=== PATIENT | female | born 1955 | race Caucasian/White ===

== ENCOUNTER → 2018-01-08 08:42 | Outpatient (POV) | payer OTHER, SELFPAY | PROVIDERS: Family Provider Emergency Medicine; PCP Emergency Medicine; Visit Provider Nurse Practitioner Acute Care | DX: Z00.00 Encounter for general adult medical examination without abnormal findings (principal) ==

== ENCOUNTER 2018-02-12 11:14 | Day surgery (SDC) | payer OTHER, SELFPAY ==
[2018-02-07 12:35] VITALS: BMI 30.9
[2018-02-12] VITALS (7 sets, daily range): BP systolic 120–158; BP diastolic 75–87; PULSE 71–77; RESP 18–20; TEMP 36.6–37; O2SAT 96–99
--- NOTE | 2018-02-12 13:46 | HMH.PROC ---
[facility] Procedure Note Procedure Note:: Upper Endoscopy Procedure Report: Esophagogastroduodenoscopy with cold biopsies and TTS balloon dilation Endoscopost: Reagan Zaldivar II, MD Referring Physician: Wai Hi MD Date of Procedure: February 12, 2018 Equipment: Olympus GIF 180 standard upper endoscope Sedation: MAC sedation Indications: Mrs. Buchanan is a 62-year-old female who is here for diagnostic evaluation of her reflux and dyspepsia. She has had some epigastric abdominal discomfort. Her symptoms of GERD had been diagnosed more than 20 years ago. She was placed on pantoprazole which is controlling her heartburn and reflux symptoms. The patient reports occasional dysphagia to her pills. She did have cervical disc surgery in 1994 and feels that this may have contributed. She does have a early satiety. She was having loose bowel movements which may have improved some with the addition of fiber tablets and probiotic. She did have a colonoscopy last year with Dr. Kaleb Blair M.D. and had no polyps. Her mother did have colon cancer and her siblings have had colon polyps. Procedure: Prior to the procedure, a history and physical exam was performed, and patient's medications and allergies were reviewed. The risks, benefits and alternatives of the sedation and procedure were discussed with the patient. All questions were answered and informed consent was obtained. The patient was brought to the procedure room. Patient identification and proposed procedure were verified by the physician and the nurse. The patient was placed in a left lateral decubitus position and the scope was passed under direct vision. Throughout the procedure, the patient's blood pressure, pulse, and oxygen saturations were monitored continuously. The upper GI endoscopy was accomplished without difficulty. The patient tolerated the procedure well. Findings: The scope was passed directly into the upper esophagus and advanced to the third portion of the duodenum. The post bulbar duodenum and duodenal bulb were normal with normal mucosa and conniventes. The scope was withdrawn through a normal duodenal bulb and pylorus into the stomach. There was mild linear reactive gastritis/antritis. The remainder of the antrum, body and fundus of the stomach were grossly normal. Upon retroflexion there was a small 1-2 cm hiatal hernia. 2 biopsies were taken in the antrum and along the lesser curvature for histology to rule out gastritis and/or H pylori. The scope was then withdrawn into the esophagus. There was a serrated Z line. There were tertiary contractions and evidence of mild esophageal dysmotility. The entire esophagus was dilated to 60 Italian/20 mm with a TTS hydrostatic balloon. There was some resistance at the cricopharyngeus/upper esophageal sphincter. The remainder of the esophageal mucosa was normal. Impression: 1. Cricopharyngeal spasm status post dilation to 20 mm 2. Nonerosive GERD with mild esophageal dysmotility and very small sliding hernia 3. Mild linear reactive gastritis/antritis Plan: I do feel that the patient has functional dyspepsia and functional GERD. We will discuss additional treatment options. I will follow up the biopsies.
--- NOTE | 2018-02-12 13:50 | P.PCN_ITS ---
[facility] Procedure Note Procedure Note:: Upper Endoscopy Procedure Report: Esophagogastroduodenoscopy with cold biopsies and TTS balloon dilation Endoscopost: Reagan Zaldivar II, MD Referring Physician: Wai Hi MD Date of Procedure: February 12, 2018 Equipment: Olympus GIF 180 standard upper endoscope Sedation: MAC sedation Indications: Mrs. Buchanan is a 62-year-old female who is here for diagnostic evaluation of her reflux and dyspepsia. She has had some epigastric abdominal discomfort. Her symptoms of GERD had been diagnosed more than 20 years ago. She was placed on pantoprazole which is controlling her heartburn and reflux symptoms. The patient reports occasional dysphagia to her pills. She did have cervical disc surgery in 1994 and feels that this may have contributed. She does have a early satiety. She was having loose bowel movements which may have improved some with the addition of fiber tablets and probiotic. She did have a colonoscopy last year with Dr. Kaleb Blair M.D. and had no polyps. Her mother did have colon cancer and her siblings have had colon polyps. Procedure: Prior to the procedure, a history and physical exam was performed, and patient' s medications and allergies were reviewed. The risks, benefits and alternatives of the sedation and procedure were discussed with the patient. All questions were answered and informed consent was obtained. The patient was brought to the procedure room. Patient identification and proposed procedure were verified by the physician and the nurse. The patient was placed in a left lateral decubitus position and the scope was passed under direct vision. Throughout the procedure, the patient's blood pressure, pulse, and oxygen saturations were monitored continuously. The upper GI endoscopy was accomplished without difficulty. The patient tolerated the procedure well. Findings: The scope was passed directly into the upper esophagus and advanced to the third portion of the duodenum. The post bulbar duodenum and duodenal bulb were normal with normal mucosa and conniventes. The scope was withdrawn through a normal duodenal bulb and pylorus into the stomach. There was mild linear reactive gastritis/antritis. The remainder of the antrum, body and fundus of the stomach were grossly normal. Upon retroflexion there was a small 1 -2 cm hiatal hernia. 2 biopsies were taken in the antrum and along the lesser curvature for histology to rule out gastritis and/or H pylori. The scope was then withdrawn into the esophagus. There was a serrated Z line. There were tertiary contractions and evidence of mild esophageal dysmotility. The entire esophagus was dilated to 60 Bulgarian/20 mm with a TTS hydrostatic balloon. There was some resistance at the cricopharyngeus/upper esophageal sphincter. The remainder of the esophageal mucosa was normal. Impression: 1. Cricopharyngeal spasm status post dilation to 20 mm 2. Nonerosive GERD with mild esophageal dysmotility and very small sliding hernia 3. Mild linear reactive gastritis/antritis Plan: I do feel that the patient has functional dyspepsia and functional GERD. We will discuss additional treatment options. I will follow up the biopsies.
--- NOTE | 2018-02-12 15:24 | P.PN_ITS ---
[facility] Anesthesia Checklist - Patient Identification Patient Identification: Arm Band - Structural Data Admitted From: Home Planned Operative Procedure/s: egd Consent for Planned Operative Procedure(s) Verified: Yes Verified Documents: Surgical Consent, History and Physical - NPO Status Verified Time NPO: 00:00 - Additional verifications Anesthesia Reactions: No - Airway Assessment C-Spine Mobility Assessed: Yes (mp2) TMJ Mobility Assessed: Yes Dentition: Good Dentition - Neurological Assessment Level of Consciousness: Awake, Alert - Anesthesia Plan Anesthesia Risk discussed: Yes Anesthesia Plan: Verified ASA Class: II Anesthesia Type: MAC [facility] Anesthesia HX I have reviewed the patient's past medical history: Yes Medical History: Reports:: Gastroesophageal Reflux Disease(GERD), Hyperlipidemia , Hypertension Denies:: Diabetes Mellitus Type 1, Diabetes Mellitus Type 2, Internal Pacemaker, Lung Disease, Seizures Other Surgeries: Yes: Colonoscopy, Other (Cervical disk disease). No: Pacemaker Amputation: No Fractures: No *Family Hx:: Anemia, Cancer, Stroke, Hypertension, Coronary Artery Disease
== END 2018-02-12 14:40 | disposition home or self-care (01) ==
LOC: OUTP 11:15
PROVIDERS: Family Provider Emergency Medicine; PCP Emergency Medicine; Visit Provider Internal Medicine Gastroenterology
PROC: 0DJ08ZZ Inspection of Upper Intestinal Tract, Via Natural or Artificial Opening Endoscopic (ICD-10-PCS; CPT 43235; principal; 2018-02-12 12:30)
DX: J39.2 Other diseases of pharynx (principal); K21.9 Gastro-esophageal reflux disease without esophagitis; K44.9 Diaphragmatic hernia without obstruction or gangrene; K22.4 Dyskinesia of esophagus; K29.60 Other gastritis without bleeding; Z80.0 Family history of malignant neoplasm of digestive organs
CPT/HCPCS: 43239; 43249; C1726

== ENCOUNTER → 2018-04-09 08:12 | Outpatient (POV) | payer OTHER, SELFPAY | PROVIDERS: Visit Provider Nurse Practitioner Acute Care | DX: Z00.00 Encounter for general adult medical examination without abnormal findings (principal) ==

== ENCOUNTER → 2018-04-18 09:36 | Outpatient (CLI) | payer OTHER, SELFPAY ==
--- NOTE | 2018-04-18 09:40 | US_ITS ---
US thyroid HISTORY: ITS.REASON: enlarged thyroid felt on exam at [facility] ORDERING PHYSICIAN: Wai Hi MD PATIENT AGE: 62 years Comparison: None FINDINGS: The right lobe is 4.2 x 1.5 x 2.1 cm. 3 mm hypoechoic nodule anteriorly unchanged. 5 mm isoechoic nodule anteriorly near the isthmus unchanged The left lobe is 3.1 x 0.8 x 1.6 cm. 6 mm slightly hypoechoic nodule upper pole unchanged No new nodules evident. IMPRESSION: No change small bilateral thyroid nodules.
== END ==
PROVIDERS: Family Provider Emergency Medicine; Visit Provider Emergency Medicine
DX: E04.9 Nontoxic goiter, unspecified (principal)
CPT/HCPCS: 76536

== ENCOUNTER → 2018-08-22 08:32 | Outpatient (CLI) | payer OTHER, SELFPAY ==
--- NOTE | 2018-08-22 08:34 | MM_ITS ---
MM Dig screening mamm BI w/CAD CAD Screening COMPARISON: Digital mammograms with CAD 08/14/2017 and 03/21/2016 INDICATION: There is no personal or family history of breast cancer TECHNIQUE: Standard CC and MLO images were obtained. R2 CAD reviewed. FINDINGS: Scattered fibroglandular densities are seen in the central portions and subareolar regions of both breasts. There is no new or suspicious lesion in either breast and there are no suspicious microcalcifications. IMPRESSION: Fibrofatty parenchyma no suspicious lesion seen BI-RADS Category: 1 Negative RECOMMENDED FOLLOW-UP: 1YR - 1 YEAR FOLLOW-UP (A letter has been sent to the patient regarding results of the study.)
== END ==
PROVIDERS: Family Provider Emergency Medicine; PCP Emergency Medicine; Visit Provider Nurse Practitioner Obstetrics & Gynecology
DX: Z12.31 Encounter for screening mammogram for malignant neoplasm of breast (principal)
CPT/HCPCS: 77067

== ENCOUNTER → 2019-02-27 14:10 | Outpatient (CLI) | payer BC, SELFPAY | PROVIDERS: Visit Provider Emergency Medicine | DX: R31.9 Hematuria, unspecified (principal) | CPT/HCPCS: 87077; 87086; 87088 ==

== ENCOUNTER → 2019-03-14 08:21 | Outpatient (CLI) | payer BC, SELFPAY ==
--- NOTE | 2019-03-14 08:33 | CT_ITS ---
CT abdomen pelvis wo/w con CLINICAL INDICATION: Hematuria, left flank pain ITS.REASON: blood in urine ORDERING PHYSICIAN: Wai Hi MD PATIENT AGE: 63 years COMPARISON: 01/09/2015 TECHNIQUE: Axial images obtained without and with contrast with sagittal and coronal reformats. All CT scans at the facility use one or more dose reduction, viz: automated exposure control, ma/kV adjustment per patient size (including targeted exams where dose is matched to indication, i.e. head), or iterative reconstruction technique. PROCEDURE: Oral Contrast: None IV Contrast: 75 mL's Optiray 350. FINDINGS: Lower thorax: No acute finding There is a small isodensity involving the right hepatic lobe suggesting a tiny cyst at approximately 3 mm unchanged. The spleen, gallbladder, adrenal glands, and pancreas have an unremarkable appearance. No renal or ureteral calculi. No hydronephrosis. There is minimal prominence of the right renal pelvis unchanged. There is a cystic area in the upper pole the left kidney medially at 19 mm. This does fill with contrast on the delayed images consistent with a calyceal diverticulum not significantly changed. No suspicious renal masses are apparent. No intestinal obstruction or free air. Unremarkable appendix. There is diverticulosis of the sigmoid colon but no evidence of diverticulitis. No pelvic mass abnormal fluid collection or focal inflammatory changes pelvis.. Bladder has an unremarkable appearance. No acute bony findings. IMPRESSION: 1. No acute abdominal or pelvic findings. 2. 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 3. No renal or ureteral calculi. No suspicious renal mass
[2019-03-14 08:42] LABS: Blood Urea Nitrogen 12 mg/dL (7-18); Creatinine,Serum 0.81 mg/dL (0.55-1.02); Estimated Glomerular Filt Rate 71 ml/min (>60); GFR (African American) 86 ML/MIN (>60)
== END ==
PROVIDERS: Visit Provider Emergency Medicine
DX: R31.9 Hematuria, unspecified (principal)
CPT/HCPCS: 36415; 74178; 82565; 84520; Q9967

== ENCOUNTER → 2019-04-05 17:43 | Outpatient (CLI) | payer BC, SELFPAY | PROVIDERS: Visit Provider Emergency Medicine | DX: N39.0 Urinary tract infection, site not specified (principal) | CPT/HCPCS: 87086; 87088; 87186 ==

== ENCOUNTER 2019-04-11 09:08 | Outpatient (CLI) | payer BC, SELFPAY ==
[2019-04-11 10:09] VITALS: BMI 29.2
--- NOTE | 2019-04-11 10:09 | XR_ITS ---
XR chest portable PICC plac 10:22 AM HISTORY: ITS.REASON: PICC line placement ORDERING PHYSICIAN: Wai Hi MD PATIENT AGE: 63 years COMPARISON: None FINDINGS: There has been interval insertion of left upper extremity PICC line. The distal aspect of the line is curled upon itself at the distal subclavian region projecting toward the mid aspect of the clavicle and then curled upon itself again projecting toward the lateral aspect of the clavicle. The cardiomediastinal silhouette and pulmonary vascularity are within normal limits. The lungs are clear without infiltrates, suspicious nodules, or pleural effusions. No acute bony abnormalities. IMPRESSION: Abnormal position of left upper extremity PICC line. Significant findings called to Terrance on 04/11/2019 11:08 AM.
--- NOTE | 2019-04-11 11:09 | XR_ITS ---
XR chest portable 11:21 AM HISTORY: ITS.REASON: PICC placement ORDERING PHYSICIAN: Wai Hi MD PATIENT AGE: 63 years COMPARISON: None FINDINGS: The PICC line has been repositioned and is now in good position with the tip in the region of the superior vena cava. The cardiomediastinal silhouette and pulmonary vascularity are within normal limits. The lungs are clear without infiltrates, suspicious nodules, or pleural effusions. No acute bony abnormalities. IMPRESSION: Good position of PICC line
[2019-04-11 11:24] VITALS: BP 152/78; PULSE 66; RESP 18; O2SAT 100
[2019-04-11 11:54] VITALS: BP 149/76; PULSE 64; RESP 18; O2SAT 99
[2019-04-11 12:24] VITALS: BP 138/71; PULSE 68; RESP 18; O2SAT 100
[2019-04-11 12:40] VITALS: BP 132/76; PULSE 64; RESP 18; O2SAT 99
[2019-04-11 14:11] LABS: Creatinine Clearance Estimated 69 mL/min (50-200); Creatinine,Serum 0.95 mg/dL (0.55-1.02); Estimated Glomerular Filt Rate 59 ml/min (>60); GFR (African American) 72 ML/MIN (>60)
[2019-04-11 15:17] LABS: Tobramycin,Peak 14.4 ug/mL (4.0-10.0)
== END 2019-04-11 13:25 | disposition home or self-care (01) ==
LOC: INF 09:08
PROVIDERS: Visit Provider Emergency Medicine
DX: N39.0 Urinary tract infection, site not specified (principal)
CPT/HCPCS: 36569; 71045; 80200; 82565; 96365; C1751

== ENCOUNTER 2019-04-12 08:17 | Outpatient (CLI) | payer BC, SELFPAY ==
[2019-04-12 08:19] VITALS: BMI 29.2
[2019-04-12 08:45] LABS: Tobramycin,Trough 0.2 ug/ml (0-2.0)
--- NOTE | 2019-04-12 09:13 | HMH.PHACONS ---
- Pharmacy Consult Date: 04/12/19 Time: 09:15 Referring provider: DR. TANG Reason for Consult:: TOBRAMYCIN LEVELS Allergies and ADEs:: Allergies Allergy/AdvReac Type Severity Reaction Status Date / Time Penicillins [PENICILLINS] Allergy Unknown I-HIVES Verified 04/05/19 14:23 levofloxacin [From Levaquin] AdvReac pain in Verified 04/08/19 12:03 Achilles tendon Home Medications:: Home Medications Medication Instructions Recorded Confirmed Type omeprazole 20 mg capsule,delayed 20 mg PO DAILY #90 cap 12/25/18 04/05/19 Rx release oseltamivir 75 mg capsule 75 mg PO DAILY #10 cap 01/15/19 04/05/19 Rx lisinopril 10 mg tablet 10 mg PO QDAY #90 tab 03/01/19 04/05/19 Rx lovastatin 10 mg tablet 10 mg PO QHS #90 tab 03/01/19 04/05/19 Rx levofloxacin 500 mg tablet 500 mg PO DAILY 7 Days #7 tab 04/08/19 Rx Height: 1.63 m Weight: 77.111 kg Laboratory Results:: Laboratory Results - last 24 hr 04/12/19 08:20: Tobramycin Trough 0.2 Medical History: Reports:: Gastroesophageal Reflux Disease(GERD), Hyperlipidemia, Hypertension Denies:: Diabetes Mellitus Type 1, Diabetes Mellitus Type 2, Internal Pacemaker, Lung Disease, Seizures Assessment and Plan - Assessment and plan all Dx Assessment and Plan for all problems:: BASED ON TOBRAMYCIN LEVELS, RECOMMEND CONTINUING TOBRAMYCIN 300 MG IV Q24H. PATIENT'S LAST DOSE WILL BE 04/17/19. TOBRAMYCIN PEAK: 14.1 MCG/ML TOBRAMYCIN TROUGH: 0.2 MCG/ML
[2019-04-12 09:25] VITALS: BP 141/73; PULSE 65; RESP 18; O2SAT 96
[2019-04-12 10:50] VITALS: BP 155/85; PULSE 70; RESP 18; O2SAT 96
== END 2019-04-12 10:50 | disposition home or self-care (01) ==
LOC: INF 08:17
PROVIDERS: Visit Provider Emergency Medicine
DX: N39.0 Urinary tract infection, site not specified (principal)
CPT/HCPCS: 80200; 96365

== ENCOUNTER 2019-04-13 07:53 | Outpatient (CLI) | payer BC, SELFPAY ==
[2019-04-13 08:10] VITALS: BP 153/73; PULSE 68; RESP 18; TEMP 36.6; O2SAT 99
[2019-04-13 10:47] VITALS: BP 147/77; PULSE 60; RESP 18; TEMP 36.4; O2SAT 100
== END 2019-04-13 09:40 | disposition home or self-care (01) ==
LOC: INF 07:55
PROVIDERS: PCP Emergency Medicine; Visit Provider Emergency Medicine
DX: N39.0 Urinary tract infection, site not specified (principal)
CPT/HCPCS: 96365

== ENCOUNTER → 2019-04-14 08:11 | Outpatient (CLI) | payer BC, SELFPAY ==
[2019-04-14 08:47] VITALS: BP 144/78; PULSE 78; RESP 16; O2SAT 100
[2019-04-14 11:31] VITALS: BP 138/73; PULSE 71; RESP 18; O2SAT 98
== END ==
PROVIDERS: PCP Emergency Medicine; Visit Provider Emergency Medicine
DX: N39.0 Urinary tract infection, site not specified (principal)
CPT/HCPCS: 96365

== ENCOUNTER → 2019-04-15 09:06 | Outpatient (CLI) | payer BC, SELFPAY ==
[2019-04-15 09:50] VITALS: BP 156/79; PULSE 68; RESP 18; TEMP 36.7; O2SAT 99; BMI 29.2
[2019-04-15 10:40] VITALS: BP 158/71; PULSE 70; RESP 18; TEMP 36.9; O2SAT 97
== END ==
PROVIDERS: PCP Emergency Medicine; Visit Provider Emergency Medicine
DX: N39.0 Urinary tract infection, site not specified (principal)
CPT/HCPCS: 87086; 96365; G0463

== ENCOUNTER 2019-04-16 08:10 | Outpatient (CLI) | payer BC, SELFPAY ==
[2019-04-16 08:05] VITALS: BP 143/74; PULSE 72; RESP 20; TEMP 37.1; O2SAT 100
[2019-04-16 08:10] VITALS: BMI 29.2
[2019-04-16 09:00] VITALS: BP 125/76; PULSE 69; RESP 20; TEMP 37.1; O2SAT 99
[2019-04-16 09:05] LABS: Anion Gap 13.5 mEq/L (5-15); Blood Urea Nitrogen 14 mg/dL (7-18); Carbon Dioxide 27 mmol/L (21.0-32.0); Chloride 104 mmol/L (98-107); Creatinine Clearance Estimated 69 mL/min (50-200); Creatinine,Serum 0.94 mg/dL (0.55-1.02); Estimated Glomerular Filt Rate 60 ml/min (>60); GFR (African American) 73 ML/MIN (>60); Glucose 102 mg/dL (74-106); Potassium 4.5 mmoL/L (3.5-5.1); Sodium 140 mmol/L (136-145)
[2019-04-16 09:35] VITALS: BP 127/77; PULSE 66; RESP 20; TEMP 37.1; O2SAT 99
[2019-04-16 09:46] LABS: Tobramycin,Trough 0.3 ug/ml (0-2.0)
--- NOTE | 2019-04-16 10:17 | HMH.PHACONS ---
- Pharmacy Consult Date: 04/16/19 Time: 10:17 Referring provider: DR. TANG Reason for Consult:: TOBRAMYCIN LEVEL Allergies and ADEs:: Allergies Allergy/AdvReac Type Severity Reaction Status Date / Time Penicillins [PENICILLINS] Allergy Unknown I-HIVES Verified 04/05/19 14:23 levofloxacin [From Levaquin] AdvReac pain in Verified 04/08/19 12:03 Achilles tendon Home Medications:: Home Medications Medication Instructions Recorded Confirmed Type lisinopril 10 mg tablet 10 mg PO QDAY #90 tab 03/01/19 04/16/19 Rx lovastatin 10 mg tablet 10 mg PO QHS #90 tab 03/01/19 04/16/19 Rx Omeprazole [Omeprazole 20mg 20 mg PO DAILY 04/16/19 04/16/19 History Capsule] Height: 1.63 m Weight: 77.111 kg Laboratory Results:: Laboratory Results - last 24 hr 04/16/19 08:25: Sodium 140, Potassium 4.5, Chloride 104, Carbon Dioxide 27, Anion Gap 13.5, BUN 14, Creatinine 0.94, Estimated Creat Clear 69, Estimated GFR 60, Est GFR ( Amer) 73, Glucose 102, Calcium 9.0, Vancomycin Trough Cancelled 04/16/19 08:25: Tobramycin Trough 0.3 Medical History: Reports:: Gastroesophageal Reflux Disease(GERD), Hyperlipidemia, Hypertension Denies:: Diabetes Mellitus Type 1, Diabetes Mellitus Type 2, Internal Pacemaker, Lung Disease, Seizures Assessment and Plan - Assessment and plan all Dx Assessment and Plan for all problems:: PATIENT'S TOBRAMYCIN TROUGH LEVEL WAS 0.3 MCG/ML THIS AM. RECOMMEND PATIENT CONTINUE WITH CURRENT DOSE AND INTERVAL OF TOBRAMYCIN AT THIS TIME. GEORGINA SAWYER, CHRISTIANOD
== END 2019-04-16 09:35 | disposition home or self-care (01) ==
LOC: INF 08:10
PROVIDERS: Visit Provider Emergency Medicine
DX: N39.0 Urinary tract infection, site not specified (principal)
CPT/HCPCS: 80048; 80200; 96365

== ENCOUNTER 2019-04-17 08:20 | Outpatient (CLI) | payer BC, SELFPAY ==
[2019-04-17 08:40] VITALS: BP 130/77; PULSE 64; RESP 18; TEMP 37.1; O2SAT 100
[2019-04-17 10:15] VITALS: BP 143/81; PULSE 65; RESP 18; O2SAT 99
== END 2019-04-17 10:15 | disposition home or self-care (01) ==
LOC: INF 08:23
PROVIDERS: Visit Provider Emergency Medicine
DX: N39.0 Urinary tract infection, site not specified (principal)
CPT/HCPCS: 96365

== ENCOUNTER → 2019-05-18 21:53 | Outpatient (CLI) | payer MEDICARE, BC, SELFPAY ==
--- NOTE | 2019-05-18 22:02 | XR_ITS ---
XR foot LT min 3V HISTORY: Left foot pain ITS.REASON: LEFT FOOT INJURY ORDERING PHYSICIAN: Wai Hi MD PATIENT AGE: 64 years COMPARISON: Right foot 10/05/2010 FINDINGS: There is a nondisplaced spiral oblique fracture of the proximal phalanx of little toe.. There is normal mineralization.. The joint spaces are well-preserved. No significant degenerative/arthritic changes. No erosive changes evident. There is a small accessory navicular bone. There is a prominent spur of the calcaneus at insertion of Achilles tendon and a small spur at insertion of plantar tendon. IMPRESSION: Nondisplaced fracture proximal phalanx little toe
== END ==
PROVIDERS: PCP Emergency Medicine; Visit Provider Emergency Medicine
DX: S99.922A Unspecified injury of left foot, initial encounter (principal)
CPT/HCPCS: 73630

== ENCOUNTER → 2019-06-17 07:36 | Outpatient (CLI) | payer MEDICARE, BC, SELFPAY ==
--- NOTE | 2019-06-17 07:46 | XR_ITS ---
XR foot wt bearing LT 3V HISTORY: Follow-up fracture, pain ITS.REASON: Fracture/dislocation ORDERING PHYSICIAN: Tarah Duran DPM PATIENT AGE: 64 years COMPARISON: 05/18/2019 FINDINGS: There is a healing fracture involving the proximal phalanx of the fifth toe with developing callus formation at fracture site. There remains good alignment. Fracture also appears to involve the distal and medial aspect of the proximal phalanx at the articular surface. Was not apparent on the previous study. Mild osteoarthritic changes are present at the first metatarsal-phalangeal joint. IMPRESSION: Healing fracture of the proximal phalanx of the fifth toe
== END ==
PROVIDERS: PCP Emergency Medicine; Visit Provider Podiatrist
DX: T14.8XXA Other injury of unspecified body region, initial encounter (principal); S92.502A Displaced unspecified fracture of left lesser toe(s), initial encounter for closed fracture
CPT/HCPCS: 73630

== ENCOUNTER → 2019-09-18 10:25 | Outpatient (CLI) | payer MEDICARE, BC, SELFPAY ==
--- NOTE | 2019-09-18 10:29 | MM_ITS ---
PROCEDURE: MM DIG SCREENING MAMM BI W/CAD Patient Age:64Y CLINICAL INDICATION: Routine Screening Mammogram No hormones but no new complaints. Noncontributory family history. 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 R2 CAD reviewed. . FINDINGS: A a moderate residual breast density/tissue of most evident retroareolar region extending to the superior right and left breast but mild asymmetry with slightly nodular appearing fibroglandular elements more evident at the anterior right breast than left left breast. Stable no new findings follow-up left mammogram 1 year Right breast mild accentuation of fibroglandular elements and subtle nodularity appearance retroareolar region anterior breast. Most likely stable but slightly more evident today.-Suspect most likely due to technique, possibly less optimal compression, overlapping shadows accentuating the mild ductal prominence retroareolar region. However, today's images questionable accentuated minimal nodularity in this area. Would suggests cc MLO spot views along with a full 90 degree view right breast. Subsequent right breast ultrasound suggested as well IMPRESSION: Right mammogram: Mild accentuation of densities and slight additional nodularity appearance right retroareolar region-most likely reflecting benign ductal prominence and slight differences in technique. Most likely stable features here but would suggest spot views and ultrasound to further evaluate Left breast: Stable. Follow-up 1 year recommended on left BI-RAD Category: 0 Need Additional Imaging Evaluation FOLLOW-UP: IMM Immediate Follow-up Recommended Right breast spot views and ultrasound suggested (A letter has been sent to the patient regarding results of the study.) Dictated by: Mp Payan MD 09/22/2019 09:45 Electronically signed by Mp Payan MD in [place] 09/22/2019 09:45
== END ==
PROVIDERS: PCP Emergency Medicine; Visit Provider Nurse Practitioner Obstetrics & Gynecology
DX: Z12.31 Encounter for screening mammogram for malignant neoplasm of breast (principal)
CPT/HCPCS: 77067

== ENCOUNTER → 2019-10-14 14:41 | Outpatient (CLI) | payer MEDICARE, BC, SELFPAY ==
--- NOTE | 2019-10-14 | US_ITS ---
PROCEDURE: MM DIG MAMM DX UNILAT RT CAD CLINICAL INDICATION: Dx Mamm right breast- abnormal mamm Right breast nodule, asymmetric density COMPARISON: [facility] DIG MAMM-SCREEN DARLING W/CAD from 08/14/2017 [facility] MM Dig screening mamm BI w/CAD from 08/22/2018 MM DIG SCREENING MAMM BI W/CAD from 09/18/2019 US BREAST RT COMPLETE from 10/14/2019 TECHNIQUE: Spot-compression views along with right breast ultrasound FINDINGS: Areas of asymmetric density in the right breast as noted on the screening mammogram appear to compress out is fibroglandular tissue. Right breast ultrasound: No cystic or solid nodule evident. IMPRESSION: No discrete lesion. Asymmetry may be due to fibroglandular tissue.. Recommend six-month follow-up to confirm stability BI-RAD Category: 3 Probably Benign Finding Short Term Follow-up FOLLOW-UP: 6M 6Month Follow-up (A letter has been sent to the patient regarding results of the study.) Dictated by: Carlos Ann MD 10/16/2019 15:56 Electronically signed by Carlos Ann MD in [place] 10/16/2019 15:56
== END ==
PROVIDERS: PCP Emergency Medicine; Visit Provider Nurse Practitioner Obstetrics & Gynecology
DX: R92.8 Other abnormal and inconclusive findings on diagnostic imaging of breast (principal)
CPT/HCPCS: 76641; 77065

== ENCOUNTER → 2020-03-24 11:01 | Outpatient (CLI) | payer MEDICARE, BC, SELFPAY ==
--- NOTE | 2020-03-24 11:08 | XR_ITS ---
PROCEDURE: XR RIBS LT 2V CLINICAL INDICATION: left side pain Left-sided rib pain below the breast COMPARISON: XR CHEST 2V from 03/24/2020 FINDINGS: No fracture or dislocation. No lytic or blastic change. IMPRESSION: Negative left ribs. If pain persists, consider follow-up in 7-[address] with 3D reformats Dictated by: Carlos Ann MD 03/24/2020 13:04 Electronically signed by Carlos Ann MD in [place] 03/24/2020 13:04
--- NOTE | 2020-03-24 11:08 | XR_ITS ---
PROCEDURE: XR CHEST 2V CLINICAL HISTORY: left side pain Left-sided chest pain. COMPARISON: CXR CHEST(2 VIEWS-NOT PORTABLE) from 12/24/[address] [facility] [address] CHEST W/O CONTRAST from 12/26/2013 CXR CHEST(2 VIEWS-NOT PORTABLE) from 08/31/2015 CXR CHEST(2 VIEWS-NOT PORTABLE) from 02/07/2017 FINDINGS: The cardiomediastinal silhouette and pulmonary vascularity are within normal limits. The lungs are clear without infiltrates, suspicious nodules, or pleural effusions. There is some increased density in the right lung base medially. This however had a similar appearance on 08/31/2015 and may be due to overlapping vessel. There is evidence of old granulomatous disease. IMPRESSION: No change with no acute finding Dictated by: Carlos Ann MD 03/24/2020 12:36 Electronically signed by Carlos Ann MD in [place] 03/24/2020 12:36
== END ==
PROVIDERS: PCP Emergency Medicine; Visit Provider Emergency Medicine
DX: R07.81 Pleurodynia (principal)
CPT/HCPCS: 71046; 71100

== ENCOUNTER → 2020-04-14 14:04 | Outpatient (CLI) | payer MEDICARE, BC, SELFPAY ==
--- NOTE | 2020-04-14 14:04 | MM_ITS ---
PROCEDURE: MM DIG MAMM DX UNILAT RT CAD Digital Breast Tomosynthesis Included CLINICAL INDICATION: 6 month follow up xmg Follow-up abnormal mammogram, follow-up asymmetry COMPARISON: [facility] MM Dig screening mamm BI w/CAD from 08/22/2018 MM DIG SCREENING MAMM BI W/CAD from 09/18/2019 MM DIG MAMM DX UNILAT RT CAD from 10/14/2019 TECHNIQUE: Standard CC and MLO images and 3D Tomosynthesis was obtained. R2 CAD reviewed. FINDINGS: Average fibroglandular tissue. No malignant appearing mass or malignant-appearing microcalcification. Recommend resume screening mammogram August 2020 IMPRESSION: BI-RAD Category: 1 Negative FOLLOW-UP: 6M 6Month Follow-up (A letter has been sent to the patient regarding results of the study.) Dictated by: Carlos Ann MD 04/20/2020 10:23 Electronically signed by Carlos Ann MD in [place] 04/20/2020 10:23
== END ==
PROVIDERS: PCP Emergency Medicine; Visit Provider Nurse Practitioner Obstetrics & Gynecology
DX: R92.8 Other abnormal and inconclusive findings on diagnostic imaging of breast (principal)
CPT/HCPCS: 77061; 77065; G0279

== ENCOUNTER → 2020-09-02 13:23 | Outpatient (CLI) | payer MEDICARE, BC, SELFPAY ==
[2020-09-02 16:11] LABS: Basophils % 0.5 % (0.1-2.0); Eosinophils # 0.1 K/mm3 (0.0-0.4); Eosinophils % 1.3 % (0.1-12.0); Hematocrit 44.7 % (37.0-47.0); Hemoglobin 14.3 g/dL (12.2-16.2); Lymphocytes # 1.5 K/mm3 (0.7-4.5); Lymphocytes % 22.8 % (10-50); Mean Corpuscular HGB Conc 31.9 g/dL (31.8-35.4); Mean Corpuscular Hemoglobin 29.8 pg (27.0-31.2); Mean Corpuscular Volume 93.2 fl (81-99); Mean Platelet Volume 9.7 fl (7.4-10.4); Monocytes # 0.3 K/mm3 (0.1-1.0); Monocytes % 5.2 % (1.7-9.3); Neutrophils # 4.6 K/mm3 (1.8-7.8); Neutrophils % 70.3 % (37.0-80.0); Platelet Count 224 K/mm3 (142-424); Red Blood Count 4.79 M/mm3 (4.20-5.40); Red Cell Distribution Width 13.6 % (11.5-17.5); White Blood Count 6.5 K/mm3 (4.8-10.8)
[2020-09-02 16:29] LABS: Alanine Aminotransferase 22 U/L (12-78); Albumin Level 4.9 g/dl (3.5-5.0); Albumin/Globulin Ratio 1.8 (1.1-1.8); Alkaline Phosphatase 89 U/L (38-126); Anion Gap 15.2 mEq/L (5-15); Aspartate Amino Transferase 29 U/L (14-36); Bilirubin,Total 0.7 mg/dl (0.2-1.3); Blood Urea Nitrogen 13 mg/dl (7-17); Calcium 10.2 mg/dl (8.4-10.2); Carbon Dioxide 28 mmol/L (22.0-30.0); Chloride 102 mmol/L (98-107); Chol/HDL Ratio 3.2 (1-3.5); Cholesterol 235 mg/dl (140-200); Estimated Glomerular Filt Rate 72 ml/min (>60); GFR (African American) 87 ML/MIN (>60); Globulin 2.7 g/dL (1.3-3.2); Glucose 108 mg/dl (74-100); HDL Cholesterol 73 mg/dl (40-60); Potassium 5.2 mmoL/L (3.5-5.1); Sodium 140 mmol/L (136-145); Total Protein,Serum 7.6 g/dl (6.3-8.2); Triglycerides 189 mg/dl (30-150); VLDL Cholesterol 38 mg/dL (0-40)
[2020-09-02 16:40] LABS: Direct LDL Cholesterol 137.04 mg/dL (100-129)
[2020-09-02 16:47] LABS: 25-OH Vitamin D, Total 39.8 ng/mL (30-100)
[2020-09-02 16:48] LABS: Free T4 (Free Thyroxine) 1.12 ng/dl (0.78-2.19)
[2020-09-02 17:01] LABS: Thyroid Stimulating Hormone 1.95 uIU/mL (0.465-4.68)
== END ==
PROVIDERS: Visit Provider Emergency Medicine
DX: I10 Essential (primary) hypertension (principal); R35.0 Frequency of micturition; E55.9 Vitamin D deficiency, unspecified
CPT/HCPCS: 80053; 80061; 82306; 84439; 84443; 85025; 87086; 87088; 87186

== ENCOUNTER → 2020-09-11 13:53 | Outpatient (CLI) | payer MEDICARE, BC, SELFPAY | PROVIDERS: Visit Provider Emergency Medicine | DX: N39.0 Urinary tract infection, site not specified (principal) | CPT/HCPCS: 87086 ==

== ENCOUNTER → 2020-10-09 12:32 | Outpatient (CLI) | payer MEDICARE, BC, SELFPAY | PROVIDERS: PCP Emergency Medicine; Visit Provider Emergency Medicine | DX: Z03.818 Encounter for observation for suspected exposure to other biological agents ruled out (principal) | CPT/HCPCS: U0003 ==

== ENCOUNTER → 2020-10-21 12:36 | Outpatient (CLI) | payer MEDICARE, BC, SELFPAY ==
--- NOTE | 2020-10-21 12:36 | MM_ITS ---
PROCEDURE: MM DIG SCREENING MAMM BI W/CAD Referring Doctor: Bright Veras Patient Age:65Y CLINICAL INDICATION: SCREENING no hormones no new complaints Noncontributory family history. COMPARISON: MG [facility] DIG MAMM-SCREEN DARLING from 01/13/2015 MG [facility] DIG MAMM-SCREEN DARLING from 03/21/2016 MG [facility] DIG MAMM-SCREEN DARLING W/CAD from 08/14/2017 [facility] MM Dig screening mamm BI w/CAD from 08/22/2018 MG MM DIG SCREENING MAMM BI W/CAD from 09/18/2019 MG MM DIG MAMM DX UNILAT RT CAD from 10/14/2019 MG MM DIG MAMM DX UNILAT RT CAD from 04/14/2020 TECHNIQUE: Standard CC and MLO images were obtained. R2 CAD reviewed. Bilateral digital breast tomosynthesis included. FINDINGS: [id number] residual fibroglandular elements. Stable mild asymmetry with no new dominant or suspicious mass. No suspicious calcifications. CAD computer review highlights no areas of concern either. A stable bilateral mammogram IMPRESSION: stable bilateral mammogram with no new areas of concern bilateral follow-up 1 year recommend BI-RAD Category: 1 Negative FOLLOW-UP: 1YR 1 Year Follow-up (A letter has been sent to the patient regarding results of the study.) Dictated by: Mp Payan MD 10/29/2020 13:59 Mp Payan MD in [place] 10/29/2020 13:59
== END ==
PROVIDERS: PCP Emergency Medicine; Visit Provider Nurse Practitioner Obstetrics & Gynecology
DX: Z12.31 Encounter for screening mammogram for malignant neoplasm of breast (principal)
CPT/HCPCS: 77063; 77067

== ENCOUNTER → 2021-09-08 15:45 | Outpatient (CLI) | payer MEDICARE, BC, SELFPAY ==
[2021-09-08 19:02] LABS: Basophils % 0.5 % (0.1-2.0); Eosinophils % 0.7 % (0.1-12.0); Hematocrit 46.2 % (37.0-47.0); Hemoglobin 14.6 g/dL (12.2-16.2); Lymphocytes # 1.4 K/mm3 (0.7-4.5); Lymphocytes % 24.1 % (10-50); Mean Corpuscular HGB Conc 31.5 g/dL (31.8-35.4); Mean Corpuscular Hemoglobin 29.7 pg (27.0-31.2); Mean Corpuscular Volume 94.4 fl (81-99); Mean Platelet Volume 10.2 fl (7.4-10.4); Monocytes # 0.3 K/mm3 (0.1-1.0); Monocytes % 4.3 % (1.7-9.3); Neutrophils # 4.1 K/mm3 (1.8-7.8); Neutrophils % 70.4 % (37.0-80.0); Platelet Count 225 K/mm3 (142-424); Red Blood Count 4.89 M/mm3 (4.20-5.40); Red Cell Distribution Width 13.9 % (11.5-17.5); White Blood Count 5.9 K/mm3 (4.8-10.8)
[2021-09-08 19:06] LABS: Alanine Aminotransferase 15 U/L (12-78); Albumin Level 4.7 g/dl (3.5-5.0); Albumin/Globulin Ratio 1.6 (1.1-1.8); Alkaline Phosphatase 77 U/L (38-126); Aspartate Amino Transferase 25 U/L (14-36); Bilirubin,Total 0.6 mg/dl (0.2-1.3); Blood Urea Nitrogen 9 mg/dl (7-17); Carbon Dioxide 29 mmol/L (22.0-30.0); Chloride 101 mmol/L (98-107); Chol/HDL Ratio 2.6 (1-3.5); Cholesterol 195 mg/dl (140-200); Estimated Glomerular Filt Rate 83 ml/min (>60); GFR (African American) 101 ML/MIN (>60); Globulin 2.9 g/dL (1.3-3.2); Glucose 89 mg/dl (74-100); HDL Cholesterol 75 mg/dl (40-60); Sodium 139 mmol/L (136-145); Total Protein,Serum 7.6 g/dl (6.3-8.2); Triglycerides 101 mg/dl (30-150); VLDL Cholesterol 20 mg/dL (0-40)
[2021-09-08 19:17] LABS: Direct LDL Cholesterol 94.79 mg/dL (100-129)
[2021-09-08 19:23] LABS: T4 (Thyroxine) 8.6 ug/dl (5.53-11.0)
[2021-09-08 19:37] LABS: Thyroid Stimulating Hormone 1.32 uIU/mL (0.465-4.68)
[2021-09-15 14:11] LABS: 1,25 Dihydroxy Vitamin D 52 pg/mL (.); 1,25-Dihydroxy, Vitamin D-2 <10 pg/mL (.); 1,25-Dihydroxy, Vitamin D-3 52 pg/mL (.)
== END ==
PROVIDERS: Visit Provider Emergency Medicine
DX: N39.0 Urinary tract infection, site not specified (principal); E78.5 Hyperlipidemia, unspecified; E66.3 Overweight; Z00.00 Encounter for general adult medical examination without abnormal findings
CPT/HCPCS: 80053; 80061; 82652; 84436; 84443; 85025; 87086; 87088; 87186

== ENCOUNTER → 2021-11-04 07:39 | Outpatient (CLI) | payer MEDICARE, BC, SELFPAY ==
--- NOTE | 2021-11-04 08:02 | MM_ITS ---
PROCEDURE INFORMATION: Exam: MG Bilateral Screening 3D Mammography Exam date and time: 11/04/2021 8:02 AM Age: 66 years old Clinical indication: Encounter for screening mammogram for malignant neoplasm of breast TECHNIQUE: Imaging protocol: Bilateral screening tomosynthesis and 2D mammography including computer-aided detection (CAD) when performed. COMPARISON: 1. MG MM DIG SCREENING MAMM BI W/CAD 10/21/2020 1:09 PM 2. MG MM DIG MAMM DX UNILAT RT CAD 04/14/2020 2:36 PM FINDINGS: MAMMOGRAPHY: Breast composition: The breast tissue is heterogeneously dense, which may obscure small masses. Mass: None. Architectural distortion: None. Calcifications: No suspicious calcifications. Asymmetric density: None. Skin thickening: None. Axillary adenopathy: None. IMPRESSION: No mammographic evidence of malignancy. Annual screening is recommended unless otherwise clinically indicated. ASSESSMENT: BI-RADS Category 1: Negative
== END ==
PROVIDERS: PCP Emergency Medicine; Visit Provider Nurse Practitioner Obstetrics & Gynecology
DX: Z12.31 Encounter for screening mammogram for malignant neoplasm of breast (principal)
CPT/HCPCS: 77063; 77067

== ENCOUNTER → 2021-12-27 10:54 | Outpatient (CLI) | payer MEDICARE, BC, SELFPAY | PROVIDERS: PCP Emergency Medicine; Visit Provider Internal Medicine | DX: Z01.812 Encounter for preprocedural laboratory examination (principal); Z11.52 Encounter for screening for COVID-19; Z13.810 Encounter for screening for upper gastrointestinal disorder; Z12.11 Encounter for screening for malignant neoplasm of colon | CPT/HCPCS: C9803; U0003; U0005 ==

== ENCOUNTER 2021-12-29 07:38 | Day surgery (SDC) | payer MEDICARE, BC, SELFPAY ==
[2021-12-29 08:20] VITALS: BP 139/80; PULSE 96; RESP 16; TEMP 37.1; O2SAT 98; BMI 25.9
[2021-12-29 10:22] VITALS: O2SAT 97
[2021-12-29 10:53] VITALS: BP 146/74; PULSE 74; RESP 14; TEMP 36.7; O2SAT 98
--- NOTE | 2021-12-29 10:54 | HMH.SCOPE ---
- Procedure: Date: 12/29/21 Patient Date of :: 1955 Procedure Performed:: EGD Indications:: Chronic GERD Performing Provider:: Carlos Castillo MD Referring Provider:: Wai Hi MD Sedation:: See RN notes Procedure:: The gastroscope was gently passed through the incisoral orifice into the oral cavity and under direct visualization the esophagus was intubated. The endoscope was passed down the esophagus, through the stomach, and into the duodenum. Color, texture, mucosa, and anatomy of the esophagus, stomach, and duodenum were carefully examined with the scope. Findings:: Oropharynx: normal Esophagus: normal EG Junction: Mild irregular z-line measured at 39 cm. Esophageal spasms noted Cardia: Small hiatal hernia between 1-2 cm in size Fundus: normal Body: normal Antrum: normal Duodenal bulb: normal Duodenum (second and third portion): normal Recommendations:: Await pathology results Continue prilosec as prescribed Complications:: None Estimated blood obtained (mL): 0
--- NOTE | 2021-12-29 10:57 | HMH.SCOPE ---
- Procedure: Date: 12/29/21 Patient Date of :: 1955 Procedure Performed:: Colonoscopy Indications:: The patient is a 66 year old who presents today for colonoscopy. She has a past medical history of colon polyps. She has a family history of colon cancer in a first degree relative (mother). Performing Provider:: Carlos Castillo MD Referring Provider:: Wai Hi MD Sedation:: See RN notes Procedure:: After placing the patient in the left lateral decubitus position, the colonoscopy was gently inserted into the rectum and under direct visualization advanced to the cecum which was identified by transillumination in the right lower quadrant, identification of the ileocecal valve, appendiceal orifice, and cecal strap. Color, texture, mucosa, and anatomy of the colon were carefully examined with the scope. Findings:: Anal canal: normal Rectum: normal Sigmoid colon: Diverticulosis. Tortuous sigmoid colon. Descending colon: normal without polyps or inflammatory changes Splenic flexure: normal Transverse colon: normal without polyps or inflammatory changes Hepatic flexure: normal Ascending colon: normal without polyps or inflammatory changes Cecum: normal Terminal ileum: not visualized Recommendations:: Higher fiber diet Recommend repeat colonoscopy in 5 years Complications:: None Estimated blood obtained (mL): 0
[2021-12-29 11:03] VITALS: BP 159/88; PULSE 73; RESP 16; O2SAT 99
[2021-12-29 11:13] VITALS: BP 130/67; PULSE 72; RESP 16; O2SAT 99
[2021-12-29 11:23] VITALS: BP 115/80; PULSE 72; RESP 16; O2SAT 100
--- NOTE | 2021-12-30 08:30 | HMH.ANESCL ---
[facility] Anesthesia Checklist - Patient Identification Patient Identification: Arm Band, Verbal (Name & ) - Structural Data Admitted From: Home Planned Operative Procedure/s: EGD/Colonoscopy Consent for Planned Operative Procedure(s) Verified: Yes Verified Documents: Surgical Consent - NPO Status Verified Time NPO: 00:00 - Additional verifications Anesthesia Reactions: No - Airway Assessment C-Spine Mobility Assessed: Yes TMJ Mobility Assessed: Yes Dentition: Good Dentition - Neurological Assessment Level of Consciousness: Awake, Alert, Appropriate, Inappropriate - Anesthesia Plan Anesthesia Risk discussed: Yes ASA Class: II Anesthesia Type: MAC [facility] History Medical History: Reports:: Gastroesophageal Reflux Disease(GERD), Hyperlipidemia, Hypertension, Tuberculosis Denies:: Cancer, Diabetes Mellitus Type 1, Diabetes Mellitus Type 2, Internal Pacemaker, Lung Disease, MRSA, Seizures *Have you ever received a pneumonia vaccine?: Yes *Have you received a flu vaccine this season?: Yes Anesthesia experience/problems:: none Other Surgeries: Yes: Colonoscopy, Other. No: Pacemaker Amputation: No Fractures: No - *Social History Last grade of school completed: High school graduate Smoking Status: Former smoker # Packs/Day (cigarettes): 1 #Yrs smoked (if former smoker): 8 Smoking End Date: 1972 Alcohol Intake: current Alcohol Intake Frequency:: holidays/special occasions only Substance Use Type: denies use *Occupational Status:: retired Housing: house Household Members: spouse *Travel in the last 8 weeks: None Family Hx:: Cancer, Heart Attack
== END 2021-12-29 11:25 | disposition home or self-care (01) ==
LOC: OUTP 07:40
PROVIDERS: PCP Emergency Medicine; Visit Provider Internal Medicine
PROC: 0DJ08ZZ Inspection of Upper Intestinal Tract, Via Natural or Artificial Opening Endoscopic (ICD-10-PCS; CPT 43235; principal; 2021-12-29 09:00)
DX: K22.4 Dyskinesia of esophagus (principal); K44.9 Diaphragmatic hernia without obstruction or gangrene; K22.89 Other specified disease of esophagus; Z12.11 Encounter for screening for malignant neoplasm of colon; K57.30 Diverticulosis of large intestine without perforation or abscess without bleeding; K56.2 Volvulus; Z80.0 Family history of malignant neoplasm of digestive organs; E78.5 Hyperlipidemia, unspecified; I10 Essential (primary) hypertension; Z86.11 Personal history of tuberculosis; Z87.891 Personal history of nicotine dependence; Z80.9 Family history of malignant neoplasm, unspecified
CPT/HCPCS: 43239; G0105

== ENCOUNTER → 2022-09-20 10:56 | Outpatient (CLI) | payer MEDICARE, BC, SELFPAY ==
--- NOTE | 2022-09-20 | CA_ITS ---
APPROVED REPORT Exam: Exercise Treadmill Technologist: Mali Lima, Ht: 5 ft 4 in Wt: 153 lbs BSA: 1.75 m2 HR: 66 bpm BP: 146/76 mmHg Rhythm: NSR, NS ST abnormalities Indications: CP Medical History Medical History: HTN, Hyperlipidemia Medications: Lisinopril,,,,, Omeprazole,,,,, Lovastatin,,,,, ValACYCLOVIR,,,,, Cardiac Risk Factors: HTN, Hyperlipidemia, FHX of CAD Stress Test Details Test: Tigre HR Resting HR: 69 bpm Max Heart Rate (APMHR): 152.805299 bpm Max HR Achieved: 154 bpm Target HR (85% APMHR): 129.353698 bpm % of APMHR: 101.32 Recovery HR: 112 bpm BP Resting BP: 136/77 mmHg Max BP: 190/70 mmHg Recovery BP: 188.0/70.0 mmHg ECG Resting ECG: NSR, NS ST abnormalities Clinical Exercise duration: 08:00 min Highest Stage Achieved: Exercise capacity: 10.1 METs Stress ECG Conclusion During tigre protocol pt exercised total of 8 minutes. No CP noted. No arrhythmias noted. 1-1.5mm upsloping ST depression anterolaterally which quickly resolves in recovery. Equivocal EKG changes. Myoview images reported separately. Test Summary REST . . . . . . . Sitting REST . . . . . . . Standing REST 03:36 0.0 0.0 69 . 136/ 77 . . Stage 1 01:00 10.0 1.7 99 . . . . Stage 1 02:00 10.0 1.7 110 . . . . Stage 1 03:00 10.0 1.7 116 . 164/ 74 . . Stage 2 01:00 12.0 2.5 118 . . . . Stage 2 02:00 12.0 2.5 140 . . . . Stage 2 03:00 12.0 2.5 142 . 190/ 70 . . Stage 3 01:00 14.0 3.4 151 . . . . Stage 3 02:00 14.0 3.4 153 . . . Stop exercise at 08:00 RECOVERY 01:00 0.0 0.0 125 . . . . RECOVERY 02:00 0.0 0.0 103 . 188/ 70 . . RECOVERY 03:00 0.0 0.0 94 . 188/ 70 . . RECOVERY 04:00 0.0 0.0 86 . 163/ 74 . . RECOVERY 05:00 0.0 0.0 88 . 153/ 73 . . RECOVERY 05:39 0.0 0.0 85 . 153/ 73 . . Electronically signed by : Kelton Sanabria MD 09/21/2022 21:27:45
--- NOTE | 2022-09-20 10:56 | NM_ITS ---
APPROVED REPORT Exam: Nuclear Stress Test Indication: Chest tightness, HTN, High cholesterol, Family history Patient Location: Outpatient Stress Tech: Mali Lima [place] Tech:Valentine Ward, ARRT, RT (R)(N) Ht: 5 ft 4 in Wt: 151 lbs Bra Size: 38D HR: 69 bpm BP: 136/77 mmHg BSA: 1.74 m2 BMI: 25.9 History: Chest tightness, HTN, High cholesterol, Family history Procedure: Patient exercised on Phuc protocol 8:00 minutes and sec, resting heart rate 69 bpm, resting blood pressure 136/77 mmHg, with exercise maximum heart rate achived was 154 bpm which is 101 % of the maximum predicted heart rate and blood pressure was 190/70 mmHg. Test was stopped due to SOB. Patient denied any complaint of chest pain. Patient has good exercise capacity, achieved 10.1 METs of workload on treadmill, the blood pressure response to exercise was Adequate. Electrocardiogram Resting electrocardiogram shows sinus rhythm, with exercise there is less than 1.[address] segment depression noted from the baseline EKG. The EKG portion of the exercise Myoview is negative for ischemia. Cardiac Stress and Resting SPECT Images: Cardiac Stress and Resting SPECT images were obtained using technetium 99m Myoview 32.3 mCi stress and 10.67 mCi at rest. Gated SPECT for analysis of segmental wall motion and calculation of the ejection fraction also done. Cardiac stress and resting SPECT images show uniform myocardial activity without segmental perfusion abnormality, computer derived ejection fraction is over 65% with no regional wall motion abnormality, right ventricle is normal size and contractility. Conclusion: 1. The EKG portion of the exercise Myoview is negative for ischemia, patient has good exercise capacity achieved 10.1 METs of workload on treadmill, the blood pressure response to exercise was adequate, there was no evidence of discomfort. 2. No scintigraphic evidence of reversible ischemia seen at this level of exercise, computer derived ejection fraction is over 65% with no regional wall motion abnormality, right ventricle is normal size and contractility. 3. Normal exercise Myoview study. Electronically signed by : Kelton Sanabria MD 09/21/2022 21:31:38
--- NOTE | 2022-09-20 12:57 | HMH.ITSHM ---
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 []VALACYCLOVIR OMEPRAZOLE LOVASTATIN LISINOPRIL
--- NOTE | 2022-09-20 13:12 | CA_ITS ---
FINAL REPORT TECHNIQUE: Color Doppler, duplex Doppler and bejarano scale sonography of the bilateral neck arterial vasculature was performed. Velocities were measured in the carotid arteries. Stenosis evaluation based on the validated velocity criteria. CLINICAL HISTORY: Dizziness FINDINGS: The peak systolic velocity of the right common carotid artery is 106 cm/s. The peak systolic velocity of the right internal carotid artery is 91 cm/s and end diastolic velocity 34 cm/s. The ICA/CCA ratio is 2.0. No plaque is present. The right external carotid artery is patent. The right vertebral artery is patent with antegrade flow. The peak systolic velocity of the left common carotid artery is 76 cm/s. The peak systolic velocity of the left internal carotid artery is 93 cm/s and end diastolic velocity 30 cm/s. The ICA/CCA ratio is 1.3. No plaque is present. The left external carotid artery is patent.The left vertebral artery is patent with antegrade flow. IMPRESSION: Less than 50% bilateral carotid stenoses. Bilateral patent vertebral arteries with antegrade flow. If indicated, CTA or MRA could further evaluate. Reviewed, Interpreted and Dictated by Luis Antonio Granado III, MD Transcribed by Reynaldo Cai Authenticated and [facility]
== END ==
PROVIDERS: PCP Emergency Medicine; Visit Provider Emergency Medicine
DX: I10 Essential (primary) hypertension (principal); R07.9 Chest pain, unspecified; R42 Dizziness and giddiness
CPT/HCPCS: 78452; 93017; 93880; A9502

== ENCOUNTER → 2022-10-07 08:46 | Outpatient (CLI) | payer MEDICARE, BC, SELFPAY ==
[2022-10-07 09:12] LABS: Basophils # 0.1 K/mm3 (0-0.2); Basophils % 0.9 % (0.1-2.0); Eosinophils # 0.1 K/mm3 (0.0-0.4); Eosinophils % 1.6 % (0.1-12.0); Hematocrit 42.9 % (37.0-47.0); Hemoglobin 13.9 g/dL (12.2-16.2); Lymphocytes # 1.6 K/mm3 (0.7-4.5); Lymphocytes % 25.4 % (10-50); Mean Corpuscular HGB Conc 32.3 g/dL (31.8-35.4); Mean Corpuscular Hemoglobin 29.2 pg (27.0-31.2); Mean Corpuscular Volume 90.5 fl (81-99); Mean Platelet Volume 9.1 fl (7.4-10.4); Monocytes # 0.3 K/mm3 (0.1-1.0); Monocytes % 4.1 % (1.7-9.3); Neutrophils # 4.2 K/mm3 (1.8-7.8); Platelet Count 230 K/mm3 (142-424); Red Blood Count 4.74 M/mm3 (4.20-5.40); Red Cell Distribution Width 13.5 % (11.5-17.5); White Blood Count 6.1 K/mm3 (4.8-10.8)
[2022-10-07 10:34] LABS: Alanine Aminotransferase 21 U/L (12-78); Albumin Level 4.8 g/dl (3.5-5.0); Albumin/Globulin Ratio 2.1 (1.1-1.8); Alkaline Phosphatase 93 U/L (38-126); Anion Gap 11.9 mEq/L (5-15); Aspartate Amino Transferase 26 U/L (14-36); Bilirubin,Total 0.5 mg/dl (0.2-1.3); Blood Urea Nitrogen 18 mg/dl (7-17); Calcium 10.1 mg/dl (8.4-10.2); Carbon Dioxide 30 mmol/L (22.0-30.0); Chloride 103 mmol/L (98-107); Chol/HDL Ratio 3.1 (1-3.5); Cholesterol 218 mg/dl (140-200); Estimated Glomerular Filt Rate 62 ml/min (>60); GFR (African American) 75 ML/MIN (>60); Globulin 2.3 g/dL (1.3-3.2); Glucose 94 mg/dl (74-100); HDL Cholesterol 71 mg/dl (40-60); Potassium 4.9 mmoL/L (3.5-5.1); Sodium 140 mmol/L (136-145); Total Protein,Serum 7.1 g/dl (6.3-8.2); Triglycerides 127 mg/dl (30-150); VLDL Cholesterol 25 mg/dL (0-40)
[2022-10-07 10:45] LABS: Direct LDL Cholesterol 102.63 mg/dL (100-129)
[2022-10-07 10:50] LABS: Free T4 (Free Thyroxine) 0.87 ng/dl (0.78-2.19)
[2022-10-07 10:51] LABS: 25-OH Vitamin D, Total 53.2 ng/mL (30-100)
== END ==
PROVIDERS: PCP Emergency Medicine; Visit Provider Emergency Medicine
DX: K59.00 Constipation, unspecified (principal); R53.83 Other fatigue; R31.9 Hematuria, unspecified; E03.9 Hypothyroidism, unspecified; E55.9 Vitamin D deficiency, unspecified
CPT/HCPCS: 36415; 80053; 80061; 82306; 84439; 84443; 85025; 87086; 87088; 87186

== ENCOUNTER → 2022-11-25 10:50 | Outpatient (CLI) | payer MEDICARE, BC, SELFPAY ==
--- NOTE | 2022-11-25 10:50 | MM_ITS ---
PROCEDURE INFORMATION: Exam: MG Bilateral Screening 3D Mammography Exam date and time: 11/25/2022 10:46 AM Age: 67 years old Clinical indication: Screening examination TECHNIQUE: Imaging protocol: Bilateral Screening tomosynthesis and 2D mammography including computer-aided detection (CAD) when performed. COMPARISON: 1. MG MM DIG SCREENING MAMM BI W/CAD 11/04/2021 7:57 AM 2. MG MM DIG SCREENING MAMM BI W/CAD 10/21/2020 1:09 PM FINDINGS: MAMMOGRAPHY: Breast composition: There are scattered areas of fibroglandular density. Mass: None. Architectural distortion: None. Calcifications: No suspicious calcifications. Asymmetric density: None. Skin thickening: None. Axillary adenopathy: None. IMPRESSION: No mammographic evidence of malignancy. Annual screening is recommended unless otherwise clinically indicated. ASSESSMENT: BI-RADS Category 1: Negative
== END ==
PROVIDERS: PCP Emergency Medicine; Visit Provider Nurse Practitioner Obstetrics & Gynecology
DX: Z12.31 Encounter for screening mammogram for malignant neoplasm of breast (principal)
CPT/HCPCS: 77063; 77067

== ENCOUNTER → 2022-12-09 13:26 | Outpatient (CLI) | payer MEDICARE, BC, SELFPAY | PROVIDERS: PCP Student in an Organized Health Care Education/Training Program; Visit Provider Student in an Organized Health Care Education/Training Program | DX: J32.9 Chronic sinusitis, unspecified (principal) | CPT/HCPCS: C9803; U0003; U0005 ==

== ENCOUNTER → 2023-04-03 09:22 | Outpatient (CLI) | payer MEDICARE, BC, SELFPAY | PROVIDERS: PCP Physician Assistant; Visit Provider Physician Assistant | DX: R53.83 Other fatigue (principal); E55.9 Vitamin D deficiency, unspecified ==

== ENCOUNTER → 2023-04-05 09:17 | Outpatient (CLI) | payer MEDICARE, BC, SELFPAY ==
[2023-04-03 14:58] LABS: Alanine Aminotransferase 28 U/L (12-78); Albumin Level 4.6 g/dl (3.5-5.0); Alkaline Phosphatase 92 U/L (38-126); Anion Gap 17.1 mEq/L (5-15); Aspartate Amino Transferase 34 U/L (14-36); Bilirubin,Total 0.5 mg/dl (0.2-1.3); Blood Urea Nitrogen 15 mg/dl (7-17); Calcium 9.5 mg/dl (8.4-10.2); Carbon Dioxide 28 mmol/L (22.0-30.0); Chloride 98 mmol/L (98-107); Chol/HDL Ratio 2.3 (1-3.5); Cholesterol 208 mg/dl (140-200); Estimated Glomerular Filt Rate 71 ml/min (>60); GFR (African American) 86 ML/MIN (>60); Globulin 2.3 g/dL (1.3-3.2); Glucose 105 mg/dl (74-100); HDL Cholesterol 89 mg/dl (40-60); Potassium 5.1 mmoL/L (3.5-5.1); Sodium 138 mmol/L (136-145); Total Protein,Serum 6.9 g/dl (6.3-8.2); Triglycerides 154 mg/dl (30-150); VLDL Cholesterol 31 mg/dL (0-40)
[2023-04-03 15:08] LABS: Creatine Kinase MB 0.6 ng/ml (0.0-2.03)
[2023-04-03 15:12] LABS: C-Reactive Protein 0.5 mg/L (0-4); Direct LDL Cholesterol 98.67 mg/dL (100-129)
[2023-04-03 15:18] LABS: 25-OH Vitamin D, Total 32.8 ng/mL (30-100)
[2023-04-03 15:30] LABS: Thyroid Stimulating Hormone 1.45 uIU/mL (0.465-4.68)
[2023-04-03 15:49] LABS: Vitamin B12 223 pg/mL (239-931)
[2023-04-05 09:29] LABS: Basophils % 0.7 % (0.1-2.0); Eosinophils # 0.1 K/mm3 (0.0-0.4); Hematocrit 40.7 % (37.0-47.0); Hemoglobin 13.4 g/dL (12.2-16.2); Lymphocytes # 1.4 K/mm3 (0.7-4.5); Lymphocytes % 32.2 % (10-50); Mean Corpuscular HGB Conc 32.8 g/dL (31.8-35.4); Mean Corpuscular Hemoglobin 29.5 pg (27.0-31.2); Mean Corpuscular Volume 89.7 fl (81-99); Mean Platelet Volume 9.1 fl (7.4-10.4); Monocytes # 0.3 K/mm3 (0.1-1.0); Monocytes % 5.6 % (1.7-9.3); Neutrophils # 2.6 K/mm3 (1.8-7.8); Neutrophils % 58.4 % (37.0-80.0); Platelet Count 214 K/mm3 (142-424); Red Blood Count 4.53 M/mm3 (4.20-5.40); Red Cell Distribution Width 13.9 % (11.5-17.5); White Blood Count 4.4 K/mm3 (4.8-10.8)
[2023-04-05 11:15] LABS: Erythrocyte Sedimentation Rate 47 mm/hr (0-30)
[2023-04-05 12:01] LABS: Lyme Ab CIA Negative (Negative)
[2023-05-07 16:16] LABS: Antinuclear Antibodies (ANA) Negative
== END ==
PROVIDERS: PCP Emergency Medicine; Visit Provider Physician Assistant
DX: R53.83 Other fatigue (principal); E55.9 Vitamin D deficiency, unspecified; E78.5 Hyperlipidemia, unspecified; I10 Essential (primary) hypertension; S30.861A Insect bite (nonvenomous) of abdominal wall, initial encounter; W57.XXXA Bitten or stung by nonvenomous insect and other nonvenomous arthropods, initial encounter
CPT/HCPCS: 36415; 80053; 80061; 82306; 82553; 82607; 83735; 84443; 85025; 85651; 86038; 86140; 86225; 86235; 86618; 87086; 87088; 87186

== ENCOUNTER 2023-04-21 12:40 | Emergency (ER) | payer MEDICARE, BC, SELFPAY ==
[2023-04-21 12:40] VITALS: BP 154/63; PULSE 95; RESP 22; TEMP 36.8; O2SAT 98; BMI 28.3
--- NOTE | 2023-04-21 12:41 | PC.NURSE ---
LLE elevated with pillows. Obvious abrasion and soft tissue swelling noted to anterior patella. +pedal pulses. Ice pack applied. Warm blanket provided.
[2023-04-21 12:46] VITALS: BMI 28.3
--- NOTE | 2023-04-21 12:49 | XR_ITS ---
FINAL REPORT CLINICAL HISTORY: fall, knot and laceration below knee cap. COMPARISON: None FINDINGS: LEFT KNEE 3 views of the left knee were obtained. There is a transverse cortical lucency in the tibial tuberosity with associated soft tissue swelling that is consistent with a nondisplaced fracture. There are mild hypertrophic changes of the patella. No joint effusion is identified.. Visualized joint spaces are normally aligned. Soft tissues are unremarkable. IMPRESSION: Transverse cortical lucency in the tibial tuberosity with associated soft tissue swelling consistent with a nondisplaced fracture. Reviewed, Interpreted and Dictated by Chandler Page MD Transcribed by Andreia Rodriguez Authenticated and [facility]
--- NOTE | 2023-04-21 12:55 | PC.NURSE ---
notified of severe pain. VO Morphine 4mg IV and Zofran 4mg IV
--- NOTE | 2023-04-21 13:06 | HMH.EDGENADL ---
Discharge Plan Disposition Patient Disposition: Home, Self-Care Prescriptions Prescriptions: New hydrocodone-acetaminophen 5-325 mg tablet 1 tab PO Q6H PRN (Reason: pain) 3 Days Qty: 12 0RF ondansetron 4 mg tablet,disintegrating 4 mg PO Q6H PRN (Reason: nausea and vomiting) 5 Days Qty: 20 0RF No Action valacyclovir [Valtrex] 1 gram tablet 1,000 mg PO DAILY PRN (Reason: UNKNOWN) Qty: 30 2RF lisinopril 20 mg tablet See Rx Instructions .ROUTE .COMPLEX Qty: 90 5RF Dose Instruction: TAKE ONE TABLET BY MOUTH DAILY Rx Instructions: TAKE ONE TABLET BY MOUTH DAILY omeprazole 20 mg capsule,delayed release(DR/EC) See Rx Instructions .ROUTE .COMPLEX Qty: 90 2RF Dose Instruction: TAKE ONE CAPSULE BY MOUTH EVERY DAY FOR stomach Rx Instructions: TAKE ONE CAPSULE BY MOUTH EVERY DAY FOR stomach cefdinir 300 mg capsule 300 mg PO BID 10 Days Qty: 20 0RF (DME) BD Integra Syringe 3 mL 25 gauge x 1 syringe See Rx Instructions .Route Qty: 25 3RF Rx Instructions: as directed cyanocobalamin (vitamin B-12) 1,000 mcg/15 mL liquid 1,000 mcg PO QWEEK Qty: 60 3RF Rx Instructions: Patient is to take 1 ml once a week for 4 weeks and then once a month for 6 months Referrals Follow up/Referrals: Sylvester Graham DO [Staff Physician] - See instructions (within 1 week ) Provider,Referral, [Referring] - See instructions Clinical Impressions Clinical Impression: Closed fracture of tibial tuberosity Discharge ED Provider: Jessika Ryan General Adult HPI General Chief complaint: Extremity Injury, Lower Stated complaint: FALL Time Seen by Provider: 04/21/23 13:06 Mode of Arrival: Wheelchair Source of Information: Patient Limitations: No Limitations Description of Symptoms (Recalled from ER Triage Doc. by RN): Presents to ED with complaints of left knee pain secondary to a fall. Patient stated she tripped over her gutter and most of the impacted was on her left knee. Patient reports numbness/tingling distal to the injury. Noticable swelling to the left knee. History of Present Illness HPI narrative: Patient is a 67-year-old female presenting with left knee pain following a fall. States she was working outside in the yard she tripped over a gutter and landed directly onto her left knee noticing a significant soft tissue deformity following this injury. She states that the pain is severe and she has been unable to move it or bear any weight since that time. Patient has no head neck chest abdomen or pelvis pain or other extremity injuries. Related Data Previous Rx's Medication Instructions Recorded valacyclovir 1 gram tablet 1,000 mg PO DAILY PRN UNKNOWN #30 02/16/22 (Valtrex) tabs lisinopril 20 mg tablet See Rx Instructions .Route 06/06/22 .COMPLEX #90 tabs omeprazole 20 mg capsule,delayed See Rx Instructions .Route 09/06/22 release .COMPLEX #90 caps cefdinir 300 mg capsule 300 mg PO BID UTI 10 days #20 caps 04/06/23 cyanocobalamin (vitamin B-12) 1,000 mcg (15 mL) PO QWEEK vitamin 04/07/23 1,000 mcg/15 mL oral liquid B12 deficiency #60 mL syringe with needle, safety 3 mL #25 ea 04/07/23 25 gauge x 1 (BD Integra Syringe) hydrocodone 5 mg-acetaminophen 325 1 tab PO Q6H PRN pain 3 days #12 04/21/23 mg tablet tabs ondansetron 4 mg disintegrating 4 mg PO Q6H PRN nausea and 04/21/23 tablet vomiting 5 days #20 tabs Allergies Allergy/AdvReac Type Severity Reaction Status Date / Time Penicillins [PENICILLINS] Allergy Unknown I-HIVES Verified 04/03/23 09:17 levofloxacin [From Levaquin] AdvReac pain in Verified 04/03/23 09:17 Achilles tendon [facility] Disclaimer: The information contained in this section may have been updated after the patient was seen, as this information can be updated by other users. Social History Smoking Status: Never smoker second hand exposure: No alcohol
--- NOTE | 2023-04-21 13:22 | PC.NURSE ---
Called X-ray to inquire about imaging. Reassessed patient's pain. Morphine has helped.
--- NOTE | 2023-04-21 13:26 | PC.NURSE ---
x-ray at bedside
--- NOTE | 2023-04-21 13:43 | CT_ITS ---
FINAL REPORT TECHNIQUE: Thin section axial CT images with coronal and sagittal reformats were performed. This study was performed with techniques to keep radiation doses as low as reasonably achievable (ALARA). Individualized dose reduction techniques using automated exposure control or adjustment of mA and/or kV according to the patient''s size were employed. CLINICAL HISTORY: fall, left knee pain FINDINGS: There is a transverse, nondisplaced fracture extending through the base of the tibial tuberosity. This is best seen on sagittal images 65-70 of series 10/2 and on coronal images 16-20 of series 1001. No other fracture is identified. There are no masses or fluid collections. There are no soft tissue abnormalities. IMPRESSION: Transverse, nondisplaced fracture extending through the base of the tibial tuberosity. Reviewed, Interpreted and Dictated by Chandler Page MD Transcribed by Lisa Monterroso Authenticated and . [facility]
[2023-04-21 14:39] VITALS: BP 138/70; PULSE 70; O2SAT 97
--- NOTE | 2023-04-21 14:39 | PC.NURSE ---
Patient resting in bed. forms of pain management have helped. Call chapin within reach.
[2023-04-21 15:00] VITALS: BP 125/71; PULSE 72; O2SAT 98
--- NOTE | 2023-04-21 16:09 | PC.NURSE ---
Updated patient; waiting for [facility] to bring walker.
[2023-04-21 17:05] VITALS: BP 136/70; PULSE 70; RESP 16; TEMP 36.8; O2SAT 97
== END 2023-04-21 16:54 | disposition home or self-care (01) ==
PROVIDERS: Emergency Provider Student in an Organized Health Care Education/Training Program; PCP Emergency Medicine
DX: S82.152A Displaced fracture of left tibial tuberosity, initial encounter for closed fracture (principal); W01.0XXA Fall on same level from slipping, tripping and stumbling without subsequent striking against object, initial encounter; Y93.H2 Activity, gardening and landscaping
CPT/HCPCS: 73562; 73700; 96374; 96375; 96376; 99284; 99285; J2405

== ENCOUNTER 2023-04-25 13:25 | Outpatient (RCR) | payer MEDICARE, BC, SELFPAY | END 2023-04-25 14:30 | disposition home or self-care (01) | LOC: PT 13:25 | PROVIDERS: Visit Provider Orthopaedic Surgery | DX: M25.562 Pain in left knee (principal); S82.152A Displaced fracture of left tibial tuberosity, initial encounter for closed fracture | CPT/HCPCS: 97760 ==

== ENCOUNTER → 2023-05-09 08:06 | Outpatient (CLI) | payer MEDICARE, BC, SELFPAY ==
--- NOTE | 2023-05-09 08:54 | XR_ITS ---
FINAL REPORT CLINICAL HISTORY: Pt fractured tibial tuberosity April 21, F/U imaging. C/O bee-stinging @ medial condyle of Lt tibia. COMPARISON: April 21, 2023 FINDINGS: 3 views of the left knee were obtained. Again seen is a transverse cortical defect of the base of the tibial tubercle consistent with a known fracture. There is no significant callus formation. The joint spaces are intact. There is no soft tissue abnormality. IMPRESSION: Redemonstration of fracture at the base of the tibial tubercle. No significant callus formation. Reviewed, Interpreted and Dictated by Chandler Pgae MD Transcribed by Reynaldo Cai Authenticated and [facility]
[2023-05-09 09:35] LABS: Basophils % 0.3 % (0.1-2.0); Eosinophils # 0.1 K/mm3 (0.0-0.4); Eosinophils % 1.3 % (0.1-12.0); Hematocrit 41.2 % (37.0-47.0); Hemoglobin 13.6 g/dL (12.2-16.2); Lymphocytes # 1.6 K/mm3 (0.7-4.5); Lymphocytes % 21.5 % (10-50); Mean Corpuscular Hemoglobin 29.1 pg (27.0-31.2); Mean Corpuscular Volume 88.2 fl (81-99); Mean Platelet Volume 9.2 fl (7.4-10.4); Monocytes # 0.4 K/mm3 (0.1-1.0); Monocytes % 5.4 % (1.7-9.3); Neutrophils # 5.3 K/mm3 (1.8-7.8); Neutrophils % 71.5 % (37.0-80.0); Platelet Count 238 K/mm3 (142-424); Red Blood Count 4.66 M/mm3 (4.20-5.40); Red Cell Distribution Width 13.7 % (11.5-17.5); White Blood Count 7.3 K/mm3 (4.8-10.8)
[2023-05-09 10:43] LABS: Vitamin B12 > 1000 pg/mL (239-931)
== END ==
PROVIDERS: PCP Emergency Medicine; Visit Provider Orthopaedic Surgery
DX: D72.829 Elevated white blood cell count, unspecified; E53.8 Deficiency of other specified B group vitamins; R82.90 Unspecified abnormal findings in urine; S82.152A Displaced fracture of left tibial tuberosity, initial encounter for closed fracture; B96.89 Other specified bacterial agents as the cause of diseases classified elsewhere
CPT/HCPCS: 36415; 73562; 82607; 85025; 87077; 87086; 87088

== ENCOUNTER → 2023-06-13 07:59 | Outpatient (CLI) | payer MEDICARE, BC, SELFPAY ==
--- NOTE | 2023-06-13 08:04 | XR_ITS ---
FINAL REPORT CLINICAL HISTORY: Lt knee pain COMPARISON: 05/09/2023 FINDINGS: LEFT KNEE SERIES Three views of the left knee were obtained. There is no acute fracture or dislocation. There is mild tricompartmental degenerative change. There is no soft tissue abnormality. IMPRESSION: No acute abnormality. Reviewed, Interpreted and Dictated by Jocy Johnson MD Transcribed by Oswaldo Escobedo Authenticated and [facility]
== END ==
PROVIDERS: PCP Emergency Medicine; Visit Provider Orthopaedic Surgery
DX: S82.152A Displaced fracture of left tibial tuberosity, initial encounter for closed fracture (principal); M25.562 Pain in left knee
CPT/HCPCS: 73562

== ENCOUNTER → 2023-06-16 10:41 | Outpatient (CLI) | payer MEDICARE, BC, SELFPAY ==
--- NOTE | 2023-06-16 10:41 | CA_ITS ---
FINAL REPORT TECHNIQUE: Compression bejarano scale and Doppler evaluation CLINICAL HISTORY: possible blood clot, Left leg fx april 21, hinged brace removed 06/13/23. LLE pain,edema, redness COMPARISON: None FINDINGS: Femoral and popliteal veins show normal compressibility and flow. Visualized portion of the calf veins are patent by Doppler exam. IMPRESSION: No evidence of left lower extremity deep venous thrombosis Reviewed, Interpreted and Dictated by Jocy Johnson MD Transcribed by Fatimah Mitchell Authenticated and [facility]
== END ==
PROVIDERS: PCP Emergency Medicine; Visit Provider Emergency Medicine
DX: M79.662 Pain in left lower leg (principal); R60.0 Localized edema
CPT/HCPCS: 93971

== ENCOUNTER → 2023-06-23 06:08 | Outpatient (CLI) | payer MEDICARE, BC, SELFPAY ==
--- NOTE | 2023-06-23 | CA_ITS ---
APPROVED REPORT Exam: Pharmacologic Technologist: Geena Roper, Ht: 5 ft 4 in Wt: 165 lbs BSA: 1.80 m2 HR: 72 bpm BP: 180/87 mmHg Rhythm: NSR Medical History Medications: Lisinopril,,,,, Omeprazole,,,,, Lovastatin,,,,, Vitamin B12,,,,, Valtrex,,,,, ONdansetron,,,,, Stress Test Details Test: LEXISCAN Reason for pharmacologic stress test: physical limitation. HR Resting HR: 76 bpm Max Heart Rate (APMHR): 151 bpm Max HR Achieved: 117 bpm Target HR (85% APMHR): 128 bpm % of APMHR: 77 Recovery HR: 76 bpm BP Resting BP: 180/87 mmHg Max BP: 180/87 mmHg Recovery BP: 158.0/85.0 mmHg ECG Resting ECG: NSR, non-specific ST abnormalities Stress ECG: Exaggeration of baseline abnormalities (ST depression) in the inferolateral leads. ST Change: PACs Clinical Exercise duration: 04:00 min Highest Stage Achieved: Exercise capacity: n/a METs Stress ECG Conclusion Vasodilation: 2 minute-SOA 3 minute- SOA, nausea 4 minute- head discomfort Recovery: 2 minute-Aminophylline 100mg slow IV. 3 minute-Feels better. 5minute- side effects resolved. Symptoms: SOA, head & stomach discomfort. No CP. Arrhythmias/Ectopy: Rare PAC. ST-T Changes: Exaggeration of baseline abnormalities (ST depression) in the inferolateral leads. Conclusion: Non-diagnostic Lexiscan stress due to baseline abnormalities. Myoview images reported separately. Test Summary REST . . . . . . . Resting REST 04:50 . . 76 . 180/ 87 . . Stage 1 01:00 . . 114 . . . . Stage 2 01:00 . . 115 . 171/ 88 . . Stage 3 01:00 . . 106 . 173/ 87 . . Stage 4 01:00 . . 98 . 160/ 85 . Stop exercise at 04:00 RECOVERY 01:00 . . 90 . . . . RECOVERY 02:00 . . 88 . . . . RECOVERY 03:00 . . 80 . 173/ 81 . . RECOVERY 04:00 . . 79 . 173/ 81 . . RECOVERY 05:00 . . 76 . 158/ 85 . . RECOVERY 05:18 . . 77 . 158/ 85 . . Electronically signed by : Nano Peres, 06/25/2023 18:13:17
--- NOTE | 2023-06-23 06:17 | NM_ITS ---
APPROVED REPORT Exam: Nuclear Stress Test Indication: soa..fatigue Patient Location: Outpatient Stress Tech: Geena De La Garza [place] Tech:MIR Sanchez RT(R)(N) Ht: 5 ft 4 in Wt: 165 lbs Bra Size: 38d HR: 76 bpm BP: 180/87 mmHg BSA: 1.80 m2 Rhythm: NSR TID: 1.00 BMI: 28.3 History: soa, fatigue Procedure: Patient received 0.4 mg of intravenous Lexiscan, resting heart rate 76 bpm, resting blood pressure 180/87 mmHg, with Lexiscan maximum heart rate achieved was 117 bpm which is 85 % of the maximum predicted heart rate and blood pressure was 180/87 mmHg. With Lexiscan, patient denied any complaint of chest pain. Cardiac Stress and Resting SPECT Images: Cardiac Stress and Resting SPECT images were obtained using technetium 99m Myoview 31.1 mCi stress and 10.90 mCi at rest. Resting and stress imaging in supine position demonstrate a medium-sized, moderate, reversible perfusion defect in the anterior LV wall. This is no longer visualized with prone stress imaging. Findings are suggestive of soft tissue attenuation, but a true perfusion defect cannot be entirely ruled out. Gated imaging demonstrates normal global LV systolic function. LVEF is calculated at 73%. Conclusion: Resting and stress imaging in supine position demonstrate a medium-sized, moderate, reversible perfusion defect in the anterior LV wall. This is no longer visualized with prone stress imaging. Findings are suggestive of soft tissue attenuation, but a true perfusion defect cannot be entirely ruled out. Gated imaging demonstrates normal global LV systolic function. LVEF is calculated at 73%. Electronically signed by : Nano Peres, 06/25/2023 18:50:52
== END ==
PROVIDERS: PCP Emergency Medicine; Visit Provider Physician Assistant
DX: I20.8 Other forms of angina pectoris (principal)
CPT/HCPCS: 78452; 93017; A9502; J0280; J2785

== ENCOUNTER → 2023-06-26 10:22 | Outpatient (CLI) | payer MEDICARE, BC, SELFPAY ==
--- NOTE | 2023-06-26 10:42 | MR_ITS ---
FINAL REPORT CLINICAL HISTORY: TIBIAL TUBEROSITY FX April, STILL HAVING PAIN AND SWELLING COMPARISON: None FINDINGS: Multiplanar MR imaging of the right knee was performed without contrast. There is moderate degradation of overall image quality secondary to motion artifact on many of the sequences. The medial and lateral menisci are intact without evidence of meniscal tear. The anterior and posterior cruciate ligaments are intact. The medial collateral ligament and lateral ligamentous complex are intact. There is distal patellar tendinitis with calcification in the distal tendon. There is a subacute appearing fracture of the tibial tubercle with mild adjacent bone marrow edema. There is moderate chondromalacia of the patellofemoral cartilage. A small joint effusion is seen. The musculature is intact. A popliteal cyst is present as well. IMPRESSION: Distal patellar tendinitis with calcification in the distal tendon. Subacute appearing fracture tibial tubercle with mild adjacent bone marrow edema. Moderate patellofemoral chondromalacia with a small joint effusion and a small popliteal cyst. Reviewed, Interpreted and Dictated by Luis Antonio Granado III, MD Transcribed by Andreia Rodriguez Authenticated and [facility]
== END ==
PROVIDERS: PCP Emergency Medicine; Visit Provider Emergency Medicine
DX: M25.462 Effusion, left knee (principal); M25.562 Pain in left knee
CPT/HCPCS: 73721

== ENCOUNTER → 2023-07-11 07:23 | Outpatient (CLI) | payer MEDICARE, BC, SELFPAY ==
[2023-07-11 08:32] LABS: Blood Urea Nitrogen 15 mg/dl (7-17); Estimated Glomerular Filt Rate 62 ml/min (>60); GFR (African American) 75 ML/MIN (>60)
== END ==
PROVIDERS: PCP Emergency Medicine; Visit Provider Internal Medicine
DX: R06.00 Dyspnea, unspecified (principal)
CPT/HCPCS: 36415; 82565; 84520

== ENCOUNTER 2023-07-17 06:36 | Outpatient (CLI) | payer MEDICARE, BC, SELFPAY ==
[2023-07-17] VITALS (8 sets, daily range): BP systolic 103–144; BP diastolic 61–81; PULSE 62–71; RESP 18; TEMP 36.4; O2SAT 97–99; BMI 28.8
--- NOTE | 2023-07-17 06:42 | CA_ITS ---
APPROVED REPORT EXAM: Comprehensive 2D, Doppler, and color-flow Echocardiogram Density Control Puncher: Nadeen Brown RDCS Ht: 5 ft 4 in Wt: 174lbs BSA: 1.84 BP: 118/68 mmHg Indications: SOA ABN GXT EDEMA HTN HLP 2D Dimensions LVOT 2.04 cm (M/F) 1.5-2.5 M-Mode Dimensions RVDd 2.28 cm (0.9-2.6) LA Diam 2.26 cm (1.9-4.0) LVDd 4.67 cm (3.5-5.7) Ao Diam 3.01 cm (2.0-3.7) LVDs 3.10 cm (3.5-5.7) IVSd 0.46 cm (0.6-1.1) PWd 0.71 cm (0.6-1.1) EF (Teich) 62.40% FS 33.60% EDV (Teich) 100.80 mL ESV (Teich) 37.90 mL LV Diastology E Decel Time 210.00 (160-240 msec) E/A Ratio 0.7 MED E' 7.80 (< 7 cm/sec) E'/MED E' Ratio 8.85 (>14) LAT E' 7.40 (<10 cm/sec) E/LAT E' Ratio 9.32 (>14) Mitral Valve MV E Max Paulo. 69.00 (40-130 cm/s) MV A Velocity 95.00 (40-130 cm/s) E/A Ratio 0.73 MV Decel. Time 210.00 (160-240 ms) MV PHT 62.00 ms Left Ventricle The left ventricle is normal size. The left ventricular systolic function is normal. The left ventricular ejection fraction is within the normal range. There is increased left ventricular wall thickness. There is normal LV segmental wall motion. The left ventricular diastolic function is normal. LVEF is 60%. Right Ventricle The right ventricle is normal size. The right ventricular systolic function is normal. There is mild increase in RV wall thickness. Atria The left atrium size is normal. The right atrium size is normal. There is no Doppler evidence of interatrial shunt. Aortic Valve The aortic valve is mildly thickened. There is no aortic valvular stenosis. Trace aortic regurgitation. Mitral Valve There is mild mitral annular calcification. The mitral valve is mildly thickened. No evidence of mitral valve stenosis. There is trace mitral valve regurgitation noted. Tricuspid Valve The tricuspid valve leaflets are thin and pliable. There is trace tricuspid regurgitation. There is insufficient TR jet to estimate RVSP. Pulmonic Valve The pulmonary valve is normal in structure. Trace pulmonic regurgitation. Great Vessels The aortic root is normal in size. The ascending aorta is not well visualized. IVC is normal in size and collapses >50% with inspiration. Pericardium There is no pericardial effusion. Other Information Study Quality: Technically Difficult Conclusion This was a technically difficult study due to poor accoustic windows. Normal biventricular systolic function. No significant valvular disease. Electronically signed by : Nano Peres, 07/17/2023 21:46:19
[2023-07-17 09:26] LABS: Chloride 100 mmol/L (98-107); Sodium 137 mmol/L (136-145)
[2023-07-17 09:27] LABS: Potassium 4.4 mmoL/L (3.5-5.1)
[2023-07-17 09:29] LABS: Anion Gap 15.4 mEq/L (5-15); Carbon Dioxide 26 mmol/L (22.0-30.0); Glucose 112 mg/dl (74-100)
[2023-07-17 09:30] LABS: Blood Urea Nitrogen 15 mg/dl (7-17); Creatinine Clearance Estimated 64 mL/min (50-200); Estimated Glomerular Filt Rate 62 ml/min (>60); GFR (African American) 75 ML/MIN (>60)
--- NOTE | 2023-07-17 11:08 | PC.NURSE ---
Pt arrived to post-op, up in chair, no C/O, drinking coffee.
--- NOTE | 2023-07-17 12:03 | PC.NURSE ---
VSS, pt without C/O, IV out, reviewed discharge instructions
== END 2023-07-17 12:03 | disposition home or self-care (01) ==
PROVIDERS: Internal Medicine; PCP Emergency Medicine; Visit Provider Nurse Practitioner
DX: R06.00 Dyspnea, unspecified (principal); R94.39 Abnormal result of other cardiovascular function study
CPT/HCPCS: 75574; 80048; 93306; Q9967

== ENCOUNTER 2023-08-11 08:19 | Day surgery (SDC) | payer MEDICARE, BC, SELFPAY ==
[2023-08-11] VITALS (11 sets, daily range): BP systolic 100–156; BP diastolic 57–119; PULSE 60–77; RESP 17–20; TEMP 36.9; O2SAT 95–100; BMI 29.8
--- NOTE | 2023-08-11 07:11 | IR_ITS ---
APPROVED REPORT Patient Location: Outpatient PROCEDURES Left heart catheterization Left ventriculogram Selective coronary angiogram INDICATION Angina pectoris, Abnormal Myoview, Informed consent was obtained prior to the procedure. COMPLICATIONS NONE Estimated Blood Loss: LESS THAN 10 ML TECHNIQUE One percent lidocaine used to anesthetize the right anterior aspect of the wrist. The right radial artery was accessed via the Seldinger technique. A 6 [place] sheath was placed in the right radial artery. 2.5 mg of Verapamil, 800 mcg of nitroglycerin, 1mg Lidocaine and 5000 U Heparin were given through the arterial sheath. The papa catheter was also used to perform left heart catheterization, left ventriculogram and selective coronary angiogram. At the end of the procedure the sheath was removed good hemostasis was achieved using Traclet band, patient was transferred to the postop holding area in stable condition. ANGIOGRAPHIC RESULTS The left main artery Normal The left anterior descending artery Has a proximal smooth 20% stenosis with remaining vessel normal The circumflex artery Is a large yet still nondominant normal The right coronary artery Dominant normal The AYALA ventriculogram reveals Normal 65% The left ventricular end-diastolic pressure 15 mmHg IMPRESSION Mild nonflow limiting proximal LAD disease Normal ejection fraction Normal left ventricular end-diastolic pressure Abnormal stress test likely secondary to breast attenuation PLAN 1. Medical management 2. Risk factor modification Electronically signed by : Osbaldo Acosta MD 08/11/2023 10:33:00
[2023-08-11 09:05] LABS: Anion Gap 12.3 mEq/L (5-15); Blood Urea Nitrogen 14 mg/dl (7-17); Calcium 9.5 mg/dl (8.4-10.2); Carbon Dioxide 28 mmol/L (22.0-30.0); Chloride 104 mmol/L (98-107); Creatinine Clearance Estimated 66 mL/min (50-200); Estimated Glomerular Filt Rate 62 ml/min (>60); GFR (African American) 75 ML/MIN (>60); Glucose 105 mg/dl (74-100); Potassium 4.3 mmoL/L (3.5-5.1); Sodium 140 mmol/L (136-145)
[2023-08-11 09:06] LABS: Basophils % 0.8 % (0.1-2.0); Eosinophils # 0.1 K/mm3 (0.0-0.4); Eosinophils % 1.9 % (0.1-12.0); Hematocrit 44.6 % (37.0-47.0); Hemoglobin 14.4 g/dL (12.2-16.2); Lymphocytes # 1.6 K/mm3 (0.7-4.5); Lymphocytes % 39.8 % (10-50); Mean Corpuscular HGB Conc 32.3 g/dL (31.8-35.4); Mean Corpuscular Hemoglobin 29.1 pg (27.0-31.2); Mean Corpuscular Volume 90.2 fl (81-99); Mean Platelet Volume 9.2 fl (7.4-10.4); Monocytes # 0.3 K/mm3 (0.1-1.0); Monocytes % 6.2 % (1.7-9.3); Neutrophils # 2.1 K/mm3 (1.8-7.8); Neutrophils % 51.3 % (37.0-80.0); Platelet Count 217 K/mm3 (142-424); Red Blood Count 4.94 M/mm3 (4.20-5.40); Red Cell Distribution Width 14.2 % (11.5-17.5)
== END 2023-08-11 13:13 | disposition home or self-care (01) ==
PROVIDERS: PCP Emergency Medicine; Visit Provider Internal Medicine
DX: R93.1 Abnormal findings on diagnostic imaging of heart and coronary circulation (principal); R94.39 Abnormal result of other cardiovascular function study; I70.213 Atherosclerosis of native arteries of extremities with intermittent claudication, bilateral legs; I10 Essential (primary) hypertension; E78.5 Hyperlipidemia, unspecified; Z79.899 Other long term (current) drug therapy; I25.118 Atherosclerotic heart disease of native coronary artery with other forms of angina pectoris
CPT/HCPCS: 80048; 85025; 93458; 99152; C1725; C1769; J1644; Q9967

== ENCOUNTER → 2023-08-21 10:36 | Outpatient (CLI) | payer MEDICARE, BC, SELFPAY ==
--- NOTE | 2023-08-21 10:39 | US_ITS ---
FINAL REPORT CLINICAL HISTORY: Left foot discolored, edema, numbness,HTN,HLD FINDINGS: BILATERAL ANKLE BRACHIAL INDICES Pressure indices are as follows are: RIGHT LOWER EXTREMITY Ankle brachial pressure index: 1.04 Toe brachial pressure index: 0.77 COMMENTS: Normal LEFT LOWER EXTREMITY Ankle brachial pressure index: 1.01 Toe brachial pressure index: 0.74 COMMENTS: Normal IMPRESSION: No evidence of significant obstructive peripheral vascular disease of the lower extremities. Reviewed, Interpreted and Dictated by Luis Antonio Granado III, MD Transcribed by Nancy Campbell Authenticated and [facility]
== END ==
PROVIDERS: PCP Emergency Medicine; Visit Provider Nurse Practitioner
DX: I73.9 Peripheral vascular disease, unspecified (principal); R20.0 Anesthesia of skin; R23.8 Other skin changes; R60.9 Edema, unspecified
CPT/HCPCS: 93923

== ENCOUNTER → 2023-09-04 09:05 | Outpatient (CLI) | payer MEDICARE, BC, SELFPAY | PROVIDERS: PCP Emergency Medicine; Visit Provider Nurse Practitioner Family | DX: R00.2 Palpitations (principal); R42 Dizziness and giddiness | CPT/HCPCS: 93270 ==

== ENCOUNTER → 2023-09-20 07:26 | Outpatient (CLI) | payer MEDICARE, BC, SELFPAY ==
--- NOTE | 2023-09-20 07:39 | MR_ITS ---
FINAL REPORT CLINICAL HISTORY: dizziness AND FATIGUE FINDINGS: Multiple projection images of the brain arterial vasculature were obtained without contrast. The raw data images were also reviewed. The distal internal carotid, distal vertebral and basilar arteries have an unremarkable appearance without evidence of significant stenosis or occlusion. The proximal anterior, middle and posterior cerebral arteries have an unremarkable appearance. There is no evidence of significant stenosis or major branch occlusion. No aneurysm or vascular malformation is identified. IMPRESSION: Unremarkable MR angiogram of the head. Reviewed, Interpreted and Dictated by Luis Antonio Granado III, MD Transcribed by Lelia Steen Authenticated and [facility]
--- NOTE | 2023-09-20 07:39 | MR_ITS ---
FINAL REPORT CLINICAL HISTORY: dizziness AND FATIGUE FINDINGS: Multiple projection images of the neck arterial vasculature were obtained without contrast. The raw data images were also reviewed. The right common carotid artery has an unremarkable appearance without evidence of stenosis or occlusion. The right internal carotid artery has an unremarkable appearance without evidence of stenosis or occlusion. The right external carotid artery is patent. The right vertebral artery is patent without evidence of stenosis. The right vertebral artery is dominant. The left common carotid artery has an unremarkable appearance without evidence of stenosis or occlusion. The left internal carotid artery is patent without evidence of stenosis or occlusion. The left external carotid artery is patent. The left vertebral artery is patent without evidence of stenosis. IMPRESSION: Unremarkable MR angiogram of the neck without evidence of stenosis or occlusion. Reviewed, Interpreted and Dictated by Luis Antonio Granado III, MD Transcribed by Lelia Steen Authenticated and [facility]
[2023-09-20 09:53] LABS: Vitamin B12 912 pg/mL (239-931)
[2023-09-26 01:07] LABS: IgG P18 Ab. Absent (.); IgG P23 Ab. Absent (.); IgG P28 Ab. Absent (.); IgG P30 Ab. Absent (.); IgG P39 Ab. Absent (.); IgG P41 Ab. Absent (.); IgG P45 Ab. Absent (.); IgG P58 Ab. Absent (.); IgG P66 Ab. Absent (.); IgG P93 Ab. Absent (.); IgM P23 Ab. Absent (.); IgM P39 Ab. Absent (.); IgM P41 Ab. Absent (.); Lyme IgG WB Interp. Negative (.); Lyme IgM WB Interp. Negative (.)
== END ==
PROVIDERS: PCP Emergency Medicine; Visit Provider Nurse Practitioner Family
DX: W57.XXXA Bitten or stung by nonvenomous insect and other nonvenomous arthropods, initial encounter (principal); R42 Dizziness and giddiness; R53.83 Other fatigue
CPT/HCPCS: 36415; 70544; 70547; 82607; 86617

== ENCOUNTER → 2023-11-01 10:02 | Outpatient (CLI) | payer MEDICARE, BC, SELFPAY ==
[2023-11-01 11:06] LABS: Iron 98 ug/dL (37-170)
[2023-11-01 11:16] LABS: Total Iron Binding Capacity 340 ug/dL (265-497)
[2023-11-01 11:24] LABS: T4 (Thyroxine) 8.6 ug/dl (5.53-11.0)
[2023-11-01 11:25] LABS: Free T4 (Free Thyroxine) 0.98 ng/dl (0.78-2.19)
[2023-11-01 11:27] LABS: Triiodothryronine (T3) Uptake 30 % (23.5-40.5)
[2023-11-01 11:28] LABS: Free Thyroxine Index 2.6 ug/dL (5.93-13.13); T4 (Thyroxine) 8.6 ug/dl (5.53-11.0)
[2023-11-01 11:41] LABS: Thyroid Stimulating Hormone 1.86 uIU/mL (0.465-4.68)
[2023-11-01 11:42] LABS: Ferritin 28.3 ng/ml (11.1-264)
[2023-11-01 13:42] LABS: Vitamin B12 853 pg/mL (239-931)
[2023-11-02 10:15] LABS: Thyroid Peroxidase Antibodies 233 IU/mL (0-34); Triiodothyronine (T3) Free 3.3 pg/mL (2.0-4.4)
[2023-11-07 22:52] LABS: Triiodothyronine (T3) Reverse 14.8
== END ==
PROVIDERS: PCP Physician Assistant; Visit Provider Physician Assistant
DX: E78.5 Hyperlipidemia, unspecified (principal); I10 Essential (primary) hypertension; R53.83 Other fatigue; E53.8 Deficiency of other specified B group vitamins; R63.5 Abnormal weight gain; R79.89 Other specified abnormal findings of blood chemistry
CPT/HCPCS: 36415; 82607; 82728; 83540; 83550; 84436; 84439; 84443; 84479; 84481; 84482; 86376

== ENCOUNTER → 2023-11-17 13:16 | Outpatient (CLI) | payer MEDICARE, BC, SELFPAY ==
--- NOTE | 2023-11-17 13:16 | US_ITS ---
FINAL REPORT TECHNIQUE: Real-time grayscale and color ultrasound of the thyroid was performed. CLINICAL HISTORY: fatigue COMPARISON: None FINDINGS: The thyroid gland measures 4.3 cm on the right and 4.2 cm on the left. The isthmus measures 0.4 cm. Nodules: There are multiple bilateral nodules generally less than 1 cm in size predominantly solid and hypoechoic. Dominant nodule in the posterior left lobe measures up to 1.2 cm, TI-RADS 4. IMPRESSION: Left lobe TR 4 nodule. Follow-up in 1 year. Reviewed, Interpreted and Dictated by Chandler Page MD Transcribed by Fatimah Mitchell Authenticated and [facility]
== END ==
LOC: RAD 13:16
PROVIDERS: PCP Physician Assistant; Visit Provider Physician Assistant
DX: R79.89 Other specified abnormal findings of blood chemistry (principal); R53.83 Other fatigue
CPT/HCPCS: 76536

== ENCOUNTER 2023-12-13 09:42 | Outpatient (CLI) | payer MEDICARE, BC, SELFPAY ==
--- NOTE | 2023-12-13 09:43 | MM_ITS ---
PROCEDURE INFORMATION: Exam: MG Bilateral Screening 3D Mammography Exam date and time: 12/13/2023 9:32 AM Age: 68 years old Clinical indication: Screening mammogram TECHNIQUE: Imaging protocol: Bilateral Screening tomosynthesis and 2D mammography including computer-aided detection (CAD) when performed. COMPARISON: 1. MG MM DIG SCREENING MAMM BI W/CAD 11/25/2022 10:46 AM 2. MG MM DIG SCREENING MAMM BI W/CAD 11/04/2021 7:57 AM 3. MG MM DIG SCREENING MAMM BI W/CAD 10/21/2020 1:09 PM 4. MG MM DIG MAMM DX UNILAT RT CAD 04/14/2020 2:36 PM FINDINGS: MAMMOGRAPHY: Breast composition: There are scattered areas of fibroglandular density. Mass: None. Architectural distortion: No new or suspicious architectural distortion. Calcifications: No new or suspicious calcifications are present Asymmetric density: No new or suspicious asymmetric density is present Skin thickening: None. Axillary adenopathy: None. IMPRESSION: No mammographic evidence of malignancy. Recommend annual screening mammography unless otherwise clinically indicated. ASSESSMENT: BI-RADS category 1: Negative
== END 2023-12-13 23:59 ==
LOC: RAD 09:43
PROVIDERS: PCP Physician Assistant; Visit Provider Physician Assistant
DX: Z12.31 Encounter for screening mammogram for malignant neoplasm of breast (principal)
CPT/HCPCS: 77063; 77067

== ENCOUNTER 2024-04-04 19:09 | Outpatient (CLI) | payer MEDICARE, BC, SELFPAY | END 2024-04-04 23:59 | disposition home or self-care (01) | LOC: LAB.DROPOF 19:10 | PROVIDERS: PCP Physician Assistant; Visit Provider Physician Assistant | DX: R31.9 Hematuria, unspecified (principal) | CPT/HCPCS: 87086 ==

== ENCOUNTER 2024-05-03 09:34 | Outpatient (CLI) | payer MEDICARE, BC, SELFPAY ==
[2024-05-03 10:10] LABS: Basophils # 0.1 K/mm3 (0-0.2); Basophils % 1.2 % (0.1-2.0); Eosinophils # 0.1 K/mm3 (0.0-0.4); Eosinophils % 1.2 % (0.1-12.0); Hematocrit 41.7 % (37.0-47.0); Hemoglobin 13.7 g/dL (12.2-16.2); Lymphocytes # 1.4 K/mm3 (0.7-4.5); Lymphocytes % 29.5 % (10-50); Mean Corpuscular HGB Conc 32.8 g/dL (31.8-35.4); Mean Corpuscular Hemoglobin 30.4 pg (27.0-31.2); Mean Corpuscular Volume 92.6 fl (81-99); Mean Platelet Volume 9.4 fl (7.4-10.4); Monocytes # 0.3 K/mm3 (0.1-1.0); Monocytes % 6.1 % (1.7-9.3); Platelet Count 213 K/mm3 (142-424); White Blood Count 4.8 K/mm3 (4.8-10.8)
[2024-05-03 10:44] LABS: Chloride 101 mmol/L (98-107); Sodium 135 mmol/L (136-145)
[2024-05-03 10:45] LABS: Potassium 4.4 mmoL/L (3.5-5.1)
[2024-05-03 10:47] LABS: Alanine Aminotransferase 24 U/L (12-78); Albumin Level 4.6 g/dl (3.5-5.0); Albumin/Globulin Ratio 1.7 (1.1-1.8); Alkaline Phosphatase 89 U/L (38-126); Anion Gap 12.4 mEq/L (5-15); Aspartate Amino Transferase 32 U/L (14-36); Bilirubin,Total 0.6 mg/dl (0.2-1.3); Blood Urea Nitrogen 15 mg/dl (7-17); Carbon Dioxide 26 mmol/L (22.0-30.0); Cholesterol 201 mg/dl (140-200); Estimated Glomerular Filt Rate 62 ml/min (>60); GFR (African American) 75 ML/MIN (>60); Globulin 2.7 g/dL (1.3-3.2); Total Protein,Serum 7.3 g/dl (6.3-8.2); Triglycerides 127 mg/dl (30-150); VLDL Cholesterol 25 mg/dL (0-40)
[2024-05-03 10:48] LABS: Calcium 9.8 mg/dl (8.4-10.2); Chol/HDL Ratio 3.1 (1-3.5); Glucose 110 mg/dl (74-100); HDL Cholesterol 65 mg/dl (40-60)
[2024-05-03 10:59] LABS: Direct LDL Cholesterol 100.27 mg/dL (100-129)
[2024-05-03 11:02] LABS: 25-OH Vitamin D, Total 54.6 ng/mL (30-100)
[2024-05-03 11:04] LABS: Triiodothryronine (T3) Uptake 32 % (23.5-40.5)
[2024-05-03 11:05] LABS: Free Thyroxine Index 2.8 ug/dL (5.93-13.13); T4 (Thyroxine) 8.7 ug/dl (5.53-11.0)
[2024-05-03 11:19] LABS: Thyroid Stimulating Hormone 1.63 uIU/mL (0.465-4.68)
[2024-05-03 14:30] LABS: Vitamin B12 782 pg/mL (239-931)
[2024-05-03 14:41] LABS: Folate > 20.00 ng/mL
== END 2024-05-03 23:59 | disposition home or self-care (01) ==
LOC: LAB 09:35
PROVIDERS: PCP Physician Assistant; Visit Provider Physician Assistant
DX: R53.83 Other fatigue (principal); E55.9 Vitamin D deficiency, unspecified; E78.5 Hyperlipidemia, unspecified; Z68.30 Body mass index [BMI] 30.0-30.9, adult
CPT/HCPCS: 36415; 80053; 80061; 82306; 82607; 82746; 84436; 84443; 84479; 85025

== ENCOUNTER 2024-05-05 18:16 | Emergency (ER) | payer MEDICARE, BC, SELFPAY ==
[2024-05-05 18:17] VITALS: BP 141/64; PULSE 80; RESP 20; TEMP 36.6; O2SAT 97
--- NOTE | 2024-05-05 18:47 | PC.NURSE ---
dr smith at bedside
--- NOTE | 2024-05-05 18:58 | HMH.EDGENADL ---
Discharge Plan Disposition Patient Disposition: Home, Self-Care Prescriptions Prescriptions: No Action lovastatin 20 mg tablet 20 mg PO HS Qty: 90 0RF omeprazole 20 mg capsule,delayed release(DR/EC) See Rx Instructions .ROUTE .COMPLEX Qty: 90 2RF Dose Instruction: TAKE ONE CAPSULE BY MOUTH EVERY DAY FOR stomach Rx Instructions: TAKE ONE CAPSULE BY MOUTH EVERY DAY FOR stomach sulfamethoxazole-trimethoprim [Bactrim DS] 800-160 mg tablet 1 tab PO BID 10 Days Qty: 20 0RF cetirizine 10 mg tablet 10 mg PO DAILY PRN Patient Comments: TAKE 1 TABLET BY MOUTH DAILY FOR ALLERGIES valsartan-hydrochlorothiazide 320-12.5 mg tablet 1 tab PO DAILY Qty: 90 3RF multivitamin Tablet 1 tab PO DAILY aspirin 81 mg Capsule 81 mg PO DAILY Referrals Follow up/Referrals: Cecy Pike PA [Primary Care Provider] - See instructions Activity Restrictions/Add. Instructions Additional Instructions/Restrictions: You were given an IV antibiotic today called dalbavancin which should be curative in your situation. Additionally you incidentally were found to have acute kidney injury with a creatinine of 1.8 up from your baseline 0.9. This is likely secondary to your recent Bactrim use. Please discontinue this medication and continue to drink fluids titrating to clear urine follow-up tomorrow and have your BMP rechecked. An order was placed from the ED you should be able to have your blood work drawn in the lab and then follow-up primary care doctor call first thing in the morning to make an appointment with your doctor as well. Return with any significant worsening of your symptoms. You should expect significant improvement in your soft tissue infection in 48-72 hours. Clinical Impressions Clinical Impression: Cellulitis of lower limb, CARMEN (acute kidney injury) Instructions Patient Instructions: DI for Skin Abscess Discharge ED Provider: Jessika Ryan General Adult HPI General Chief complaint: Skin/Abscess/Foreign Body Stated complaint: spot on R ankle getting larger Time Seen by Provider: 05/05/24 18:44 Mode of Arrival: Ambulatory Source of Information: Patient Limitations: No Limitations Description of Symptoms (Recalled from ER Triage Doc. by RN): pt has a raised red spot on the inside of right ankle, saw pcp office about it earlier this week and was given bactrim. pcp office instructed if it got bigger to go to ER. pt states it got bigger outside of the marker [place] that had been drawn aroun it. pt denies any pain and has no known injury or bug bite to her knowledge. pt first noted it on monday History of Present Illness HPI narrative: Patient is a 69-year-old female presents today with worsening right medial aspect of her lower extremity erythema warmth and tenderness. This began about 5 days ago she went to her primary care doctor was started on Bactrim has not had any improvement they tiara a marker around it has expanded outside of this. She does feel little nauseated but no fevers or chills definitively. She denies any other significant past medical problems. Related Data Home Medications Medication Instructions Recorded Confirmed aspirin 81 mg capsule 81 mg PO DAILY Supplement 07/17/23 05/03/24 multivitamin 1 tab PO DAILY Supplement 07/17/23 05/03/24 cetirizine 10 mg tablet 10 mg PO DAILY PRN 03/27/24 05/03/24 Previous Rx's Medication Instructions Recorded valsartan 320 1 tab PO DAILY #90 tabs 03/27/24 mg-hydrochlorothiazide 12.5 mg tablet lovastatin 20 mg tablet 20 mg PO HS Cholesterol #90 tabs 04/04/24 omeprazole 20 mg capsule,delayed See Rx Instructions .Route 04/04/24 release .COMPLEX #90 caps sulfamethoxazole 800 1 tab PO BID 10 days #20 tabs 05/03/24 mg-trimethoprim 160 mg tablet (Bactrim DS) Allergies Allergy/AdvReac Type Severity Reaction Status Date / Time Penicillins [PENICILLINS] Allergy Unknown I-HIVES Verified 05/03/24 09:02 adhesive tape AdvReac Verified 05/03/24 09:02 levofloxacin [From Levaquin] AdvReac pain in Verified 05/03/24 09:02 [facility]illes [facility] Disclaimer: The information contained in this section may have been updated after the patient was seen, as this information can be updated by other users. Medical History CAD in [place] artery Bilateral carotid artery stenosis Tick bite Lyme serology negative Claudication Abnormal foot color Numbness of left foot Edema Abnormal cardiac CT angiography Chronic UTI Abnormal stress test GERD (gastroesophageal reflux disease) HLD (hyperlipidemia) HTN (hypertension) Surgical History Hx of fusion of cervical spine Family History Other Alcoholism Cancer Coronary artery disease Diabetes FHx: mental illness Family history of heart disease Heart attack Hyperlipidemia Hypertension Kidney disease Stroke Thyroid disorder Social History Smoking Status: Never smoker second hand exposure: No alcohol intake: never substance use type: denies use current occupational status: retired Travel in the last 8 weeks: Inside the [place] household members: spouse housing: house caffeine: Yes ROS Obtained: Yes All systems reviewed & no additional complaints except as documented Physical Exam General General appearance: alert and in no apparent distress Respiratory Respiratory exam: Present normal lung sounds bilaterally Cardiovascular Cardiovascular exam: Present regular rate Extremities Exam Extremities exam: Present other (Erythema that is mildly swollen and tender over the medial aspect of the ankle and lower tib-fib region extending about 10 x 10 cm no fluctuant area) Neurological Exam Neurological exam: Present alert and oriented X3 Medical Decision Making Ranjit Inquiry Pt receiving controlled substance: No Vital Signs: 05/05/24 18:17 Temperature 97.9 F Temperature Source Oral Pulse Rate [Right Radial] 80 Respiratory Rate 20 Blood Pressure [Right Arm] 141/64 H Blood Pressure Mean [Right Arm] 89 02 Sat by Pulse Oximetry 97 Oxygen Delivery Method Room Air Lab Data Lab results reviewed: Yes I reviewed the patient's lab results. Lab Results 05/05/24 19:05: WBC 5.6, RBC 4.22, Hgb 12.9, Hct 38.5, MCV 91.2, MCH 30.7, MCHC 33.6, RDW 14.3, Plt Count 213, MPV 9.4, Neut % (Auto) 77.2, Lymph % (Auto) 15.4, Pickett % (Auto) 4.7, Eos % (Auto) 1.8, Baso % (Auto) 0.9, Neut # (Auto) 4.3, Lymph # (Auto) 0.9, Pickett # (Auto) 0.3, Eos # (Auto) 0.1, Baso # (Auto) 0.1, Sodium 134 L, Potassium 4.5, Chloride 103, Carbon Dioxide 23, Anion Gap 12.5, BUN 25 H D, Creatinine 1.80 H D, Estimated Creat Clear 36, Estimated GFR 28 L, Est GFR ( Amer) 34 L D, Glucose 100, Calcium 9.4, Total Bilirubin 0.4, AST 39 H, ALT 29, Alkaline Phosphatase 80, Total Protein 7.3, Albumin 4.6, Globulin 2.7, Albumin/Globulin Ratio 1.7 05/05/24 19:05 05/05/24 19:05 Orders (Tests/Meds): ED MEDICATIONS Generic Name Dose Route Start Last Admin Trade Name Freq PRN Reason Stop Dose Admin Lactated Ringer's 1,000 mls @ 999 mls/hr 05/05/24 20:00 05/05/24 20:02 Lactated Ringer's 1000 Ml Bag IV 05/05/24 21:00 999 mls/hr .Q1H1M ALAYNA Administration Discontinued Medications Generic Name Dose Route Start Last Admin Trade Name Freq PRN Reason Stop Dose Admin Dalbavancin 1,500 mg/ Dextrose 250 mls @ 500 mls/hr 05/05/24 18:57 05/05/24 19:16 IV 05/05/24 18:58 500 mls/hr ONCE ONE Administration ORDERS Category Date Time Status POCUS Point of Care (ER Only) Stat Exams 05/05/24 18:52 Completed CBC w/Auto Diff [Complete Blood Count Auto Diff] Stat Lab 05/05/24 19:05 Completed CMP [Comprehensive Metabolic Panel] Stat Lab 05/05/24 19:05 Completed Blood Culture Stat Micro 05/05/24 19:05 Received Medical Decision Narrative: 69-year-old female presenting today with worsening cellulitis clinically after failing outpatient antibiotics. She does have some signs and symptoms of systemic illness will get blood cultures and will administer dalbavancin. This should be curative in her situation. Discussed this with her I did limited bedside ultrasound there is no drainable fluid collection to suggest need for incision and drainage will reassess after labs. Reassessment 840 patient's labs returned she does have acute kidney injury with a creatinine of 1.8 baseline 0.9. This is most likely secondary to her Bactrim use which she will just discontinue. IV fluids were administered. I gave her the option of being admitted for IV fluids and having this rechecked in the morning versus close outpatient follow-up which she chose the latter. An order has been placed for her BMP to be rechecked and to follow-up with primary care doctor tomorrow. She will return with any significant worsening of her symptoms. Dalbavancin was administered that should be curative. This should improve in 48 to 72 hours and she will return if she is having any systemic signs or symptoms of illness such as fever significant spreading redness or other concerns. Procedures Miscellaneous Procedure Procedure Performed: Limited soft tissue ultrasound Indication: Soft tissue redness Identified structures: Location: Medial aspect of the right lower extremity Findings: Scant soft tissue fluid tracking along the fascial planes but no localized drainable fluid collection Impression: Small amount of soft tissue fluid not in the localized drainable fluid collection consistent with cellulitis Images were saved to permanent archive The study was technically adequate Soft Tissue CPT Codes: CPT Lower Extremity: 25424-16 CPT Other Soft Tissue: 16656-97 This study was performed by me, and I personally interpreted all images/videos. Based on my clinical judgement, these images were adequate and did not necessitate further imaging. Critical Care Critical Care Time Critical Care Time: No
[2024-05-05] MEDS: DALBAVANCIN HCL 1,500 MG in DEXTROSE 5 % IN WATER 250 ML 500 MG IV (19:16)
[2024-05-05 19:26] LABS: Basophils # 0.1 K/mm3 (0-0.2); Basophils % 0.9 % (0.1-2.0); Eosinophils # 0.1 K/mm3 (0.0-0.4); Eosinophils % 1.8 % (0.1-12.0); Hematocrit 38.5 % (37.0-47.0); Hemoglobin 12.9 g/dL (12.2-16.2); Lymphocytes # 0.9 K/mm3 (0.7-4.5); Lymphocytes % 15.4 % (10-50); Mean Corpuscular HGB Conc 33.6 g/dL (31.8-35.4); Mean Corpuscular Hemoglobin 30.7 pg (27.0-31.2); Mean Corpuscular Volume 91.2 fl (81-99); Mean Platelet Volume 9.4 fl (7.4-10.4); Monocytes # 0.3 K/mm3 (0.1-1.0); Monocytes % 4.7 % (1.7-9.3); Neutrophils # 4.3 K/mm3 (1.8-7.8); Neutrophils % 77.2 % (37.0-80.0); Platelet Count 213 K/mm3 (142-424); Red Blood Count 4.22 M/mm3 (4.20-5.40); Red Cell Distribution Width 14.3 % (11.5-17.5); White Blood Count 5.6 K/mm3 (4.8-10.8)
[2024-05-05 19:28] LABS: Chloride 103 mmol/L (98-107); Potassium 4.5 mmoL/L (3.5-5.1); Sodium 134 mmol/L (136-145)
[2024-05-05 19:31] LABS: Alanine Aminotransferase 29 U/L (12-78); Albumin Level 4.6 g/dl (3.5-5.0); Albumin/Globulin Ratio 1.7 (1.1-1.8); Alkaline Phosphatase 80 U/L (38-126); Anion Gap 12.5 mEq/L (5-15); Aspartate Amino Transferase 39 U/L (14-36); Bilirubin,Total 0.4 mg/dl (0.2-1.3); Blood Urea Nitrogen 25 mg/dl (7-17); Calcium 9.4 mg/dl (8.4-10.2); Carbon Dioxide 23 mmol/L (22.0-30.0); Creatinine Clearance Estimated 36 mL/min (50-200); Estimated Glomerular Filt Rate 28 ml/min (>60); GFR (African American) 34 ML/MIN (>60); Globulin 2.7 g/dL (1.3-3.2); Glucose 100 mg/dl (74-100); Total Protein,Serum 7.3 g/dl (6.3-8.2)
[2024-05-05] MEDS: LACTATED RINGERS 1000ML 1,000 ML 999 ML IV (20:02)
[2024-05-05 20:45] VITALS: BP 132/66; PULSE 81; RESP 16; TEMP 36.8; O2SAT 100
== END 2024-05-05 20:51 | disposition home or self-care (01) ==
PROVIDERS: Emergency Provider Student in an Organized Health Care Education/Training Program; PCP Physician Assistant
DX: L03.115 Cellulitis of right lower limb (principal); N17.8 Other acute kidney failure; R11.0 Nausea; I65.23 Occlusion and stenosis of bilateral carotid arteries; K21.9 Gastro-esophageal reflux disease without esophagitis; E78.5 Hyperlipidemia, unspecified; I11.9 Hypertensive heart disease without heart failure; I25.10 Atherosclerotic heart disease of native coronary artery without angina pectoris
CPT/HCPCS: 80053; 85025; 87040; 96361; 96374; 99284; J0875; J7060; J7120

== ENCOUNTER 2024-05-06 07:26 | Outpatient (CLI) | payer MEDICARE, BC, SELFPAY ==
[2024-05-06 08:23] LABS: Chloride 100 mmol/L (98-107); Sodium 134 mmol/L (136-145)
[2024-05-06 08:24] LABS: Potassium 4.2 mmoL/L (3.5-5.1)
[2024-05-06 08:26] LABS: Blood Urea Nitrogen 16 mg/dl (7-17); Estimated Glomerular Filt Rate 40 ml/min (>60); GFR (African American) 49 ML/MIN (>60)
[2024-05-06 08:27] LABS: Anion Gap 12.2 mEq/L (5-15); Calcium 9.7 mg/dl (8.4-10.2); Carbon Dioxide 26 mmol/L (22.0-30.0); Glucose 101 mg/dl (74-100)
== END 2024-05-06 23:59 | disposition home or self-care (01) ==
PROVIDERS: PCP Physician Assistant; Visit Provider Student in an Organized Health Care Education/Training Program
DX: L03.90 Cellulitis, unspecified (principal); N17.9 Acute kidney failure, unspecified
CPT/HCPCS: 36415; 80048

== ENCOUNTER 2024-08-07 08:49 | Outpatient (CLI) | payer MEDICARE, BC, SELFPAY | END 2024-08-07 23:59 | disposition home or self-care (01) | LOC: LAB.DROPOF 08-08 08:50 | PROVIDERS: PCP Nurse Practitioner Family; Visit Provider Nurse Practitioner Family | DX: R31.9 Hematuria, unspecified (principal); R30.0 Dysuria | CPT/HCPCS: 87086; 87088; 87186 ==

== ENCOUNTER 2024-08-20 09:58 | Outpatient (CLI) | payer MEDICARE, BC, SELFPAY ==
--- NOTE | 2024-08-20 10:01 | US_ITS ---
FINAL REPORT CLINICAL HISTORY: UTI COMPARISON: None FINDINGS: RENAL ULTRASOUND Ultrasound images of the kidneys were obtained. Limited images of the liver parenchyma demonstrates normal echogenicity. The right kidney measures 11.1 cm in length. It is normal echogenicity. There is no hydronephrosis. The left kidney measures 9.4 cm in length. It is normal echogenicity. There is no hydronephrosis. IMPRESSION: Normal renal ultrasound. Reviewed, Interpreted and Dictated by Chandler Page MD Transcribed by Fatimah Mitchell Authenticated and . [facility]
--- NOTE | 2024-08-20 11:09 | XR_ITS ---
FINAL REPORT CLINICAL HISTORY: pt states UTI COMPARISON: None FINDINGS: SINGLE VIEW ABDOMEN A single view of the abdomen was obtained. There is a nonobstructive bowel gas pattern. There are no abnormally dilated loops of small bowel. No abnormal calcifications are identified. IMPRESSION: Nonobstructive bowel gas pattern. Reviewed, Interpreted and Dictated by Chandler Page MD Transcribed by Andreia Rodriguez Authenticated and [facility]
== END 2024-08-20 23:59 | disposition home or self-care (01) ==
LOC: RAD 09:59
PROVIDERS: PCP Nurse Practitioner Family; Visit Provider Nurse Practitioner Family
DX: N39.0 Urinary tract infection, site not specified (principal)
CPT/HCPCS: 74018; 76770

== ENCOUNTER 2024-10-03 09:53 | Outpatient (CLI) | payer MEDICARE, BC, SELFPAY ==
--- NOTE | 2024-10-03 10:24 | XR_ITS ---
PROCEDURE INFORMATION: Exam: XR Right Hip Exam date and time: 10/03/2024 10:27 AM Age: 69 years old Clinical indication: Hip pain; Bilateral TECHNIQUE: Imaging protocol: Radiologic exam of the right hip. Views: 2 or 3 views hip with pelvis when performed. COMPARISON: No relevant prior studies available. FINDINGS: Bones/joints: No acute fracture. No dislocation. Soft tissues: Unremarkable. IMPRESSION: No fracture. If hip pain persists, consider MRI to exclude occult fracture/internal derangement.
--- NOTE | 2024-10-03 10:24 | XR_ITS ---
PROCEDURE INFORMATION: Exam: XR Left Hip Exam date and time: 10/03/2024 10:27 AM Age: 69 years old Clinical indication: Hip pain; Bilateral TECHNIQUE: Imaging protocol: Radiologic exam of the left hip. Views: 2 or 3 views hip with pelvis when performed. COMPARISON: No relevant prior studies available. FINDINGS: Bones/joints: No acute fracture. No dislocation. Soft tissues: Unremarkable. IMPRESSION: No fracture. If hip pain persists, consider MRI to exclude occult fracture/internal derangement.
== END 2024-10-03 23:59 | disposition home or self-care (01) ==
LOC: RAD 09:55
PROVIDERS: PCP Nurse Practitioner Family; Visit Provider Nurse Practitioner Family
DX: M25.551 Pain in right hip (principal); M25.552 Pain in left hip
CPT/HCPCS: 73502

== ENCOUNTER 2024-10-16 08:00 | Outpatient (RCR) | payer MEDICARE, BC, SELFPAY ==
--- NOTE | 2024-10-11 09:55 | HMH.PTOPEV ---
PT Outpatient Evaluation Rehab PT Outpatient Evaluation Start: 10/11/24 08:52 Freq: Status: Active Protocol: Document 10/11/24 09:40 MANNY (Rec: 10/11/24 09:55 AMANDAALEXANDRIA [id number]) E-signed By Mauricio Montejo, PT Outpatient Therapy Subjective History Subjective History Pt is a 69 yof who presents to [facility] outpatient physical therapy with complaints of BL hip pain. She reports that initially the pain was in both hips but in the past two weeks, it seems to only be the R hip but it has worsened. She reports that the pain feels like a burning fire that goes into her R buttock and posterior upper thigh. She reports that this pain is at its worse when she is sleeping . She reports that it seems to be the worst whenever she puts pressure on her R hip, such as when she is driving. She reports she saw Dr. Shaffer a week ago, who prescribed prednisone and gave her a steroid shot. She reports that her symptoms have been significantly improved since then. She reports that her prednisone runs out tomorrow, so she is anxious to see how she feels after that. New diagnosis of cancer in past 12 No months? Chief Complaint Pain,Spasms Symptom Type Shooting,Other Symptoms Relieved By Rest/Positioning,Prescription Meds Symptoms Aggravated By Supine,Sitting,Physical Activity,Walking Prior Functional Limitations None Current Functional Limitations Driving,Sleeping,Sitting, Squatting,Walking,Stairs Symptom Description Intermittent Level of pain today (0-10) 0 Pain scale - at its best (0-10) 0 Pain scale - at its worst (0-10) 10 Lumbopelvic Eval Posture Thoracic Spine Posture Standing Position Neutral Lumbar Spine Posture Standing Position Neutral Hip/Knee Eval Gait Observation General Gait Pattern Observation No Deviations/Normal Palpation Tenderness right Hip Palpation Findings Tenderness MMT bilateral Hip Flexion Strength Grade 3+ Fair+ Hip Abduction Strength Grade 3 Fair Hip Extension Strength Grade 2+ Poor+ Hip External Rotation Strength Grade 3 Fair Hip Internal Rotation Strength Grade 3 Fair Knee Extension Strength Grade 4- Good- Knee Flexion Strength Grade 4- Good- ROM Hip ROM Reason Not Measured Within Functional Limits Knee ROM Reason Not Measured Within Functional Limits Special Tests Hip Bowstring (Cram) Test Negative Left,Negative Right Hip Freddy's Test Negative Left,Negative Right Hip Roseann's Test Negative Left,Negative Right Hip Elan Test Negative Left,Negative Right Hip Piriformis Test Negative Left,Negative Right Hip 90-90 Straight Leg Raise Test Negative Left,Negative Right Sciatic Nerve Tension Test Negative Left,Positive Right Hip Scouring (Quadrant) Test Negative Left,Positive Right Cliff Test Positive Lower Extremity Functional Index Activities Today, do you or would you have any difficulty at all with: a.Any of your usual work, housework or No difficulty school activities b. Your usual hobbies, recreational or Moderate difficulty sporting activities c. Getting into or out of the bath Quite a bit of difficulty d. Walking between rooms No difficulty e. Putting on your shoes or socks A little bit of difficulty f. Squatting Quite a bit of difficulty g. Lifting an object, like a bag of No difficulty groceries from the floor h. Performing light activities around No difficulty your home i. Performing heavy activities around A little bit of difficulty your home j. Getting into or out of a car A little bit of difficulty k. Walking 2 blocks Quite a bit of difficulty l. Walking a mile Extreme difficulty or unable to perform activity m. Going up or down 10 stairs (about 1 Quite a bit of difficulty flight of stairs) n. Standing for 1 hour Moderate difficulty o. Sitting for 1 hour Quite a bit of difficulty p. Running on even ground Extreme difficulty or unable to perform activity q. Running on uneven ground Extreme difficulty or unable to perform activity r. Making sharp turns while running fast Extreme difficulty or unable to perform activity s. Hopping Extreme difficulty or unable to perform activity t. Rolling over in bed Extreme difficulty or unable to perform activity LEFI Score Lower Extremity Functional Index Score 34 Outpatient Therapy Assessment Impairments Problems/Impairmments Palpation Tenderness,Impaired Strength,Impaired Walking, Impaired Standing,Impaired Sitting,Impaired Driving, Impaired Stair Climbing, Impaired Squatting,Subjective C/O Pain Prognosis Rehab Potential Good Comment Pt demonstrates tenderness to palpation of the sciatic nerve along with comparable sign with sciatic nerve tension test. These signs and symptoms are suggestive of Sciatic nerve inflammation. Skilled PT is indicated for this pt. Clinical Impression Consistent with Diagnosis Yes Short Term Goals Number of Weeks 3 Decreased Palpation Tenderness Yes: 0/4 Increase Strength Yes: 4/5 to B hips/knees Increase Ability to Stand Yes: 30 minutes with no pain Increase Ability to Sit Yes: 30 minutes with no pain Increase Ability to Drive/Ride in Car Yes: 30 minutes with no pain Improve LEFI Score Yes: to 45 Decrease Subjective C/O Pain Yes: 6/10 at worst Patient to be Ind w/ HEP Yes Fpc Goals Number of Weeks 6 Increase Strength Yes: 5/5 B hip/knees Increase Ability to Walk Yes: 1/2 mile no pain Increase Ability to Stand Yes: 1 hour no pain Increase Ability to Sit Yes: 1 hour no pain Increase Ability to Drive/Ride in Car Yes: 1 hour no pain Improve LEFI Score Yes: to 55 Decrease Subjective C/O Pain Yes: 2/10 at worst Patient to be Ind w/ Advanced HEP Yes Outpatient Therapy Plan of Care Treatment Plan May Include Therapeutic Exercise Including Home Yes Exercise Program Manual Therapy Techniques Yes Neuromuscular Re-education Yes Therapeutic Activities to Return to Yes Previous Functional/Work Level Gait Training Yes ADL/Self Care Education Yes Mechanical Traction Yes Dry Needling Yes Thermal Modalities Yes Electrical Stimulation Yes Massage Yes Eval/Re-Eval Yes Frequency Times per week 2 Duration Number of Weeks 6 Addendums This patient is a candidate for social No or vocational rehab? Patient/Guardian verbally acknowledges Yes understanding of treatment program and consents to further treatment? Patient/Guardian verbally acknowledges Yes understanding of diagnosis, prognosis and goals for treatment? Eval Complexity PT Charges 37929 - Low Complexity Shoulder/Elbow Eval Shoulder Objective Measurements Elbow Objective Measurements PHYSICIAN CERTIFICATION: I certify the specified therapy services for Estella Sinclair are required, authorized, and reviewed every 30 days.
== END 2024-10-16 23:59 | disposition home or self-care (01) ==
LOC: PT 08:00
PROVIDERS: PCP Nurse Practitioner Family; Visit Provider Nurse Practitioner Family
DX: M25.551 Pain in right hip (principal); M25.552 Pain in left hip
CPT/HCPCS: 97010; 97014; 97110; 97163; 97530; G0283

== ENCOUNTER 2024-10-30 09:50 | Outpatient (CLI) | payer MEDICARE, BC, SELFPAY ==
[2024-10-30 10:28] LABS: Basophils % 0.3 % (0.1-2.0); Eosinophils % 0.1 % (0.1-12.0); Hematocrit 38.9 % (37.0-47.0); Hemoglobin 13.6 g/dL (12.2-16.2); Lymphocytes # 1.6 K/mm3 (0.7-4.5); Lymphocytes % 18.5 % (10-50); Mean Corpuscular HGB Conc 34.9 g/dL (31.8-35.4); Mean Corpuscular Hemoglobin 30.1 pg (27.0-31.2); Mean Corpuscular Volume 86.3 fl (81-99); Mean Platelet Volume 9.2 fl (7.4-10.4); Monocytes # 0.5 K/mm3 (0.1-1.0); Monocytes % 6.2 % (1.7-9.3); Neutrophils # 6.6 K/mm3 (1.8-7.8); Neutrophils % 74.9 % (37.0-80.0); Platelet Count 243 K/mm3 (142-424); Red Blood Count 4.51 M/mm3 (4.20-5.40); Red Cell Distribution Width 14.4 % (11.5-17.5); White Blood Count 8.8 K/mm3 (4.8-10.8)
[2024-10-30 10:58] LABS: Albumin Level 4.5 g/dl (3.5-5.0); Chloride 100 mmol/L (98-107)
[2024-10-30 10:59] LABS: Potassium 4.9 mmoL/L (3.5-5.1); Sodium 128 mmol/L (136-145)
[2024-10-30 11:01] LABS: Alanine Aminotransferase 27 U/L (12-78); Alkaline Phosphatase 86 U/L (38-126); Anion Gap 6.9 mEq/L (5-15); Aspartate Amino Transferase 25 U/L (14-36); Bilirubin,Direct 0.4 mg/dl (0.0-0.4); Bilirubin,Indirect 0.1 mg/dL (0.0-0.9); Bilirubin,Total 0.5 mg/dl (0.2-1.3); Bilirubin,Unconjugated 0.1 mg/dL (0.0-1.1); Blood Urea Nitrogen 26 mg/dl (7-17); Carbon Dioxide 26 mmol/L (22.0-30.0); Cholesterol 161 mg/dl (140-200); Estimated Glomerular Filt Rate 62 ml/min (>60); GFR (African American) 75 ML/MIN (>60); Total Protein,Serum 6.9 g/dl (6.3-8.2); Triglycerides 76 mg/dl (30-150); VLDL Cholesterol 15 mg/dL (0-40)
[2024-10-30 11:02] LABS: Calcium 10.1 mg/dl (8.4-10.2); Chol/HDL Ratio 1.7 (1-3.5); Glucose 96 mg/dl (74-100); HDL Cholesterol 93 mg/dl (40-60)
[2024-10-30 11:13] LABS: Direct LDL Cholesterol 48.01 mg/dL (100-129)
[2024-10-30 11:17] LABS: Free T4 (Free Thyroxine) 0.91 ng/dl (0.78-2.19)
[2024-10-30 11:32] LABS: Thyroid Stimulating Hormone 0.99 uIU/mL (0.465-4.68)
== END 2024-10-30 23:59 | disposition home or self-care (01) ==
PROVIDERS: PCP Nurse Practitioner Family; Visit Provider Internal Medicine
DX: I10 Essential (primary) hypertension (principal); I25.10 Atherosclerotic heart disease of native coronary artery without angina pectoris; E53.8 Deficiency of other specified B group vitamins; R60.9 Edema, unspecified; E78.5 Hyperlipidemia, unspecified; R06.00 Dyspnea, unspecified; R53.83 Other fatigue
CPT/HCPCS: 36415; 80048; 80061; 80076; 84439; 84443; 85025

== ENCOUNTER 2024-11-08 07:24 | Outpatient (CLI) | payer MEDICARE, BC, SELFPAY ==
[2024-11-08 08:45] LABS: Creatine Kinase 63 U/L (30-135)
[2024-11-08 08:49] LABS: Anion Gap 9.4 mEq/L (5-15); Blood Urea Nitrogen 15 mg/dl (7-17); Calcium 9.5 mg/dl (8.4-10.2); Carbon Dioxide 27 mmol/L (22.0-30.0); Chloride 104 mmol/L (98-107); Estimated Glomerular Filt Rate 62 ml/min (>60); GFR (African American) 75 ML/MIN (>60); Glucose 94 mg/dl (74-100); Potassium 4.4 mmoL/L (3.5-5.1); Sodium 136 mmol/L (136-145)
[2024-11-08 08:50] LABS: C-Reactive Protein 1.2 mg/L (0-4)
[2024-11-08 08:51] LABS: Erythrocyte Sedimentation Rate 15 mm/hr (0-30)
[2024-11-11 12:08] LABS: Anti-Centromere B Antibodies <0.2 AI (0.0-0.9); Anti-DNA (DS) Ab Qn 1 IU/mL (0-9); Anti-Jo-1 <0.2 AI (0.0-0.9); Anti-Smith Antibody <0.2 AI (0.0-0.9); Antichromatin Antibodies <0.2 AI (0.0-0.9); Antiscleroderma-70 Antibodies <0.2 AI (0.0-0.9); RNP Antibodies <0.2 AI (0.0-0.9); Sjogren's Anti-SS-A <0.2 AI (0.0-0.9); Sjogren's Anti-SS-B <0.2 AI (0.0-0.9)
== END 2024-11-08 23:59 | disposition home or self-care (01) ==
LOC: LAB 07:27
PROVIDERS: Internal Medicine; PCP Nurse Practitioner Family; Visit Provider Nurse Practitioner Family
DX: I10 Essential (primary) hypertension (principal); I25.10 Atherosclerotic heart disease of native coronary artery without angina pectoris; E53.8 Deficiency of other specified B group vitamins; E78.5 Hyperlipidemia, unspecified; R53.83 Other fatigue
CPT/HCPCS: 36415; 80048; 82550; 85651; 86140; 86225; 86235

== ENCOUNTER 2024-11-22 15:25 | Outpatient (CLI) | payer MEDICARE, BC, SELFPAY ==
--- NOTE | 2024-11-22 15:26 | MR_ITS ---
FINAL REPORT CLINICAL HISTORY: Bilat Hip pain COMPARISON: None FINDINGS: Multiplanar MR imaging of the right hip was performed without contrast. There is moderate narrowing of the hip joint space. There is no evidence of fracture or dislocation. The femoral head has a normal smooth contour. There is no evidence of avascular necrosis. No bony mass is identified. No labral tear is identified. No significant joint effusion is seen. The tendons are intact. The musculature is intact. No soft tissue mass or cyst is identified. IMPRESSION: Moderate hip joint space narrowing. Reviewed, Interpreted and Dictated by Chandler Page MD Transcribed by Fatimah Mitchell Authenticated and [facility]
--- NOTE | 2024-11-22 15:26 | MR_ITS ---
FINAL REPORT CLINICAL HISTORY: Bilat hip pain COMPARISON: None FINDINGS: Multiplanar MR imaging of the left hip was performed without contrast. There is moderate narrowing of the hip joint space. The femoral head has a normal smooth contour. There is no evidence of fracture or dislocation. There is no evidence of avascular necrosis. No bony mass is identified. No labral tear is identified. A small joint effusion is seen. The musculature is intact. There is a small amount of edema overlying the insertion of the abductor tendons probably related to tendinitis or bursitis. This is best seen on image 22 of series 4. No soft tissue mass or cyst is identified. IMPRESSION: Moderate hip joint space narrowing. Mild tendinitis/bursitis at the insertion of the abductor tendons Reviewed, Interpreted and Dictated by Chandler Page MD Transcribed by Fatimah Mitchell Authenticated and [facility]
== END 2024-11-22 23:59 | disposition home or self-care (01) ==
LOC: RAD 15:26
PROVIDERS: PCP Nurse Practitioner Family; Visit Provider Nurse Practitioner Family
DX: M25.551 Pain in right hip (principal); M25.552 Pain in left hip
CPT/HCPCS: 73721

== ENCOUNTER 2025-01-14 08:17 | Outpatient (CLI) | payer MEDICARE, BC, SELFPAY ==
--- NOTE | 2025-01-14 08:18 | MM_ITS ---
PROCEDURE INFORMATION: Exam: MG Bilateral Screening 3D Mammography Exam date and time: 01/14/2025 8:26 AM Age: 69 years old Clinical indication: Screening mammogram TECHNIQUE: Imaging protocol: Bilateral Screening tomosynthesis and 2D mammography including computer-aided detection (CAD) when performed. COMPARISON: 1. MG MM DIG SCREENING MAMM BI W/CAD 12/13/2023 9:32 AM 2. MG MM DIG SCREENING MAMM BI W/CAD 11/25/2022 10:46 AM 3. MG MM DIG SCREENING MAMM BI W/CAD 11/04/2021 7:57 AM 4. MG MM DIG SCREENING MAMM BI W/CAD 10/21/2020 1:09 PM FINDINGS: MAMMOGRAPHY: Breast composition: There are scattered areas of fibroglandular density. Mass: None. Architectural distortion: No new or suspicious architectural distortion. Calcifications: No new or suspicious calcifications are present Asymmetric density: No new or suspicious asymmetric density is present Skin thickening: None. Axillary adenopathy: None. IMPRESSION: No mammographic evidence of malignancy. Recommend annual screening mammography unless otherwise clinically indicated. ASSESSMENT: BI-RADS category 1: Negative.
== END 2025-01-14 23:59 | disposition home or self-care (01) ==
LOC: RAD 08:18
PROVIDERS: PCP Nurse Practitioner Family; Visit Provider Nurse Practitioner Family
DX: Z12.31 Encounter for screening mammogram for malignant neoplasm of breast (principal)
CPT/HCPCS: 77063; 77067

== ENCOUNTER 2025-02-08 12:36 | Outpatient (CLI) | payer MEDICARE, BC, SELFPAY ==
[2025-02-08 21:24] LABS: Coronavirus 19, PCR Not Detected (NotDetected); Influenza A, PCR Not Detected (NotDetected); Influenza B, PCR Not Detected (NotDetected)
== END 2025-02-08 23:59 | disposition home or self-care (01) ==
LOC: LAB.DROPOF 02-10 12:59
PROVIDERS: PCP Student in an Organized Health Care Education/Training Program; Visit Provider Student in an Organized Health Care Education/Training Program
DX: J06.9 Acute upper respiratory infection, unspecified (principal)
CPT/HCPCS: 87636

== ENCOUNTER 2025-02-12 11:37 | Outpatient (CLI) | payer MEDICARE, BC, SELFPAY ==
--- NOTE | 2025-02-12 11:38 | XR_ITS ---
FINAL REPORT CLINICAL HISTORY: Cough, sputum, fever x1 week FINDINGS: PA and lateral views of the chest are obtained. There is no prior exam for comparison. The cardiac and mediastinal silhouettes are within normal limits. Subtle right midlung opacity may represent atelectasis or pneumonia. The lungs are otherwise clear. There is no pleural effusion, pneumothorax, or acute osseous abnormality. IMPRESSION: Subtle right midlung opacity, atelectasis versus pneumonia. Reviewed, Interpreted and Dictated by Shweta Awan MD Transcribed by Nancy Campbell Authenticated and [facility]
== END 2025-02-12 23:59 | disposition home or self-care (01) ==
LOC: RAD 11:38
PROVIDERS: PCP Internal Medicine; Visit Provider Internal Medicine
DX: R05.8 Other specified cough (principal); R50.9 Fever, unspecified
CPT/HCPCS: 71046

== ENCOUNTER 2025-04-16 12:25 | Outpatient (CLI) | payer MEDICARE, BC, SELFPAY ==
--- OUTSIDE RECORDS SUMMARY | 2025-04-16 12:27 | XMS_ITS | Data Portability ---
Author Organization [facility] ADMIN Address [address] [place] [address] Assessment No assessment recorded. Plan of Treatment Reminders Order Date Submit Date Provider Last Modified By Organization Details Last Modified Time Details Appointments OV EST 15 2025 09:30A Elsa Obrien NP Not available Not available Not available Lab urinalysi s, dipstick 2024 025 [email or web address] [facility], [address], [place], [address], 02/27/2025 10:14:17 urinalysi s, dipstick 2023 024 [email or web address] [facility], [address], [place], [address], 08/19/2024 10:30:16 Referral None recorded. Procedures None recorded. Surgeries None recorded. Imaging US, renal 2023 024 [facility] (Scheduling), [address], [place], [address], 08/20/2024 15:08:41 XR, kidney + ureter + bladder 2023 024 [facility] (Scheduling), [address], [place], [address], 08/20/2024 15:07:44 XR, ankle 2022 023 [email or web address] [facility], [address] [place] [address] [place], [address], 10/24/2023 11:16:42 XR, knee 2022 023 [email or web address] Mv [facility], [address] [place] [address] [place], [address], 10/24/2023 11:16:42 Medication Orders Voltaren Arthritis Pain 1 % topical gel 2022 024 [facility][id number], [address], [phone], 08/19/2024 10:18:58 lidocaine 1.8 % topical patch 2022 024 [facility] #[id number], [address], [phone], 08/19/2024 10:19:10 Patient TargetsNo targets recorded. Patient InstructionsNo instructions recorded. Reason for Referral None Reported. Results Created Date Observation Date Name Description Value Unit Range Abnormal Flag Note LastModifiedBy Organization Detail LastModifiedTime 08/19/20 24 08/19/2024 urina lysis , dipst ick Leukocytes (reference range) negati ve Not Available [place] [address] [address] [facility] 100, [place], [address], 08/19/2024 10:08:06 08/19/20 24 08/19/2024 urina lysis , dipst ick Nitrite (reference range:) negati ve Not Available [place] [address] [address] [facility] 100, [place], [address], 08/19/2024 10:08:06 08/19/20 24 08/19/2024 urina lysis , dipst ick Urobilinogen (reference range) 0.2 Not Available [place] [address] [address] [facility] 100, [place], [address], 08/19/2024 10:08:06 08/19/20 24 08/19/2024 urina lysis , dipst ick Protein (reference range) negati ve Not Available [place] [address], [place], [address], 08/19/2024 10:08:06 08/19/20 24 08/19/2024 urina lysis , dipst ick pH (reference range 5-8.5) 6.0 Not Available [facility] [place] [address], [place], [address], 08/19/2024 10:08:06 08/19/20 24 08/19/2024 urina lysis , dipst ick Blood (reference range:) negati ve Not Available [place] [address], [place], [address], 08/19/2024 10:08:06 08/19/20 24 08/19/2024 urina lysis , dipst ick Specific Empire (reference range) 1.015 Not Available [facility] [place] [address], [place], [address], 08/19/2024 10:08:06 08/19/20 24 08/19/2024 urina lysis , dipst ick Ketone (reference range) negati ve Not Available [place] [address], [place], [address], 08/19/2024 10:08:06 08/19/20 24 08/19/2024 urina lysis , dipst ick Bilirubin (reference range) negati ve Not Available [place] [address], [place], [address], 08/19/2024 10:08:06 08/19/20 24 08/19/2024 urina lysis , dipst ick Glucose (reference range) negati ve Not Available [place] [address] [address] [facility] 100, [place], [address], 08/19/2024 10:08:06 08/19/20 24 08/19/2024 urina lysis , dipst ick Color (reference range: yellow-brown ) Yellow Not Available [place] [address] [address] [facility] [address], [place], [address], 08/19/2024 10:08:06 02/28/20 25 02/27/2025 urina lysis , dipst ick Leukocytes (reference range) negati ve Not Available [place] [address] [address] [facility] [address], [place], [address], 02/27/2025 10:13:47 02/28/20 25 02/27/2025 urina lysis , dipst ick Nitrite (reference range:) negati ve Not Available [place] [address] [address] [facility] [address], [place], [address], 02/27/2025 10:13:47 02/28/20 25 02/27/2025 urina lysis , dipst ick Urobilinogen (reference range) 0.2 Not Available [place] [address] [address] [facility] 100, [place], [address], 02/27/2025 10:13:47 02/28/20 25 02/27/2025 urina lysis , dipst ick Protein (reference range) negati ve Not Available [place] [address] [address] [facility] [address], [place], [address], 02/27/2025 10:13:47 02/28/20 25 02/27/2025 urina lysis , dipst ick pH (reference range 5-8.5) 6.0 Not Available [facility] [place] [address], [place], [address], 02/27/2025 10:13:47 02/28/20 25 02/27/2025 urina lysis , dipst ick Blood (reference range:) negati ve Not Available [facility] [place] [address] [address] [facility] [address], [place], [address], 02/27/2025 10:13:47 02/28/20 25 02/27/2025 urina lysis , dipst ick Specific Empire (reference range) 1.015 Not Available [facility] [place] [address] [address] [facility] [address], [place], [address], 02/27/2025 10:13:47 02/28/20 25 02/27/2025 urina lysis , dipst ick Ketone (reference range) negati ve Not Available [facility] [place] [address] [address] [facility] [address], [place], [address], 02/27/2025 10:13:47 02/28/20 25 02/27/2025 urina lysis , dipst ick Bilirubin (reference range) negati ve Not Available [facility] [place] [address] [address] [facility] [address], [place], [address], 02/27/2025 10:13:47 02/28/20 25 02/27/2025 urina lysis , dipst ick Glucose (reference range) negati ve Not Available [facility] [place] [address] [address] [facility] [address], [place], [address], 02/27/2025 10:13:47 02/28/20 25 02/27/2025 urina lysis , dipst ick Color (reference range: yellow-brown ) Yellow Not Available [facility] [place] [address] [address] [facility] 100, [place], [address], 02/27/2025 10:13:47 10/24/20 23 XR, knee No observ ation record ed. HOLLY Shi [facility] [address] [place], [address], 10/24/2023 09:26:35 10/24/20 23 XR, ankle No observ ation record ed. HOLLY Shi [facility] [address] , [place], [address], 10/24/2023 09:31:52 08/20/20 24 08/20/2024 XR, kidne y + urete r + bladd er No observ ation record ed. [place] [address], [place], [address], 08/21/2024 09:21:02 08/20/20 24 08/20/2024 US, renal No observ ation record ed. [facility] [address], [place], [address], 08/21/2024 09:21:03 Result Notes None recorded. Problems Name Problem SNOMED Code Status Onset Date Resolution Date Notes Provider Name and Address Organization Details Recorded Time Retrocalc aneal bursitis of right foot 946315832416 9104 Active 2022 Jamal An MD [address] [place] [address],[address], [place], [address], [facility] - [facility] & [place] 3 11:27:32 Patellar tendoniti s 24739182 Active 2022 Jamal An MD [address] [place] [address],[address], [place], [address], [facility] - [facility] - [place] & [place] 3 11:28:23 Malignant neoplasm of skin 869262504 Completed 202308/19/2024 Chaparrita murrieta, [place] - [facility] - [place] & [place] 4 10:17:19 Hyperchol esterolem ia 63659939 Active 2023 Chaparrita murrieta, LITTLE - [facility] - [place] & [place] 4 10:17:29 Hypertens lorrie disorder 89619375 Active 2023 Chaparrita murrieta, LITTLE - [facility] - [facility] & [place] 4 10:17:38 Gastroeso phageal reflux disease 746866808 Active 2023 Chaparrita murrieta, LITTLE Dominguez LP[facility] - [facility] & [place] 4 10:17:48 Tuberculo sis 04545844 Active 2023 Chaparrita murrieta, LITTLE Dominguez [facility] - [facility] & [place] 4 10:18:11 Microscop ic hematuria 138064196 Active 2023 Chaparrita murrieta, LITTLE Dominguez LP[facility] - [facility] & [place] 4 10:18:23 History of urinary tract infection 335693990016 7 Active 2023 Chaparrita murrieta, LITTLE Dominguez LP[facility] - [facility] & [place] 4 10:18:35 Problem Notes None recorded. Procedures Surgical History Date Name Laterality Status Provider Name and Address Organization Details Recorded Time primary fusion of cervical spine completed Chaparrita Dominguez LPNT Alberto [facility] & [place] 08/19/2024 10:24:03 Imaging Results None recorded. Procedure Notes None recorded. Medical Equipment None Reported. Allergies Allergen ID Allergen Name Allergen Category Reaction Reaction Severity Criticality Documentation Date Start Date Code Code System Note Provider Name and Address Organization Details Recorded Time 699925 Product containin g penicilli n (product) medicatio n hives moderate Not available 10/24/2023 47270 8001 SNOMED Breonna Jenkins-Pit akis null, LITTLE - [facility] - [place] & [place] 3 09:25:04 723683 adhesive environme nt,medica tion rash Not available Not available 10/24/2023 36141 UNK Breonna Jenkins-Pit akis null, LITTLE - [facility] - [facility] & [place] 3 09:25:04 335426 Bactrim medicatio n Not available Not available Not available 08/19/2024 72903 9 RxNorm LITTLE Heredia - [facility] & [place] 4 10:16:51 359211 Levaquin medicatio n Not available Not available Not available 08/19/2024 93820 2 RxNorm LITTLE Heredia - [facility] & [place] 4 10:17:01 Medications Name Sig Start Date Stop Date Status Note LastModified by Organization Details LastModified Time potassium chloride ER 10 mEq capsule,ext ended release TAKE 1 CAPSULE BY MOUTH DAILY FOR LOW POTASSIUM 10/24 completed Not Available Not Available Not Available cetirizine 10 mg tablet TAKE 1 TABLET BY MOUTH DAILY FOR ALLERGIES active Not Available Not Available No t Available azithromyci n 250 mg tablet TAKE 2 TABLETS BY MOUTH ON DAY 1, THEN TAKE 1 TABLET DAILY ON DAYS 2-5 10/24 completed Not Available Not Available Not Available hydrocodone 5 mg-acetamin ophen 325 mg tablet TAKE ONE TABLET BY MOUTH EVERY 6 HOURS NEEDED FOR PAIN MAY CAUSE DROWSINES S 10/24 completed Not Available Not Available Not Available meloxicam 15 mg tablet TAKE ONE TABLET BY MOUTH EVERY DAY FOR inflammat ion --TAKE WITH FOOD-- 10/24 completed Not Available Not Available Not Available lisinopril 20 mg tablet TAKE ONE TABLET BY MOUTH EVERY DAY 10/24 completed Not Available Not Available Not Available prednisone 20 mg tablet TAKE ONE TABLET BY MOUTH TWICE DAILY FOR 5 DAYS active Not Available Not Available No t Available amlodipine 5 mg tablet TAKE ONE TABLET BY MOUTH DAILY active Not Available Not Available No t Available sulfamethox azole 800 mg-trimetho prim 160 mg tablet TAKE ONE TABLET BY MOUTH TWICE DAILY FOR 10 DAYS -- FINISH ALL MEDICINE -- 08/19 completed Not Available Not Available Not Available doxycycline monohydrate 100 mg tablet TAKE ONE TABLET BY MOUTH TWICE DAILY 08/19 completed Not Available Not Available Not Available cephalexin 500 mg capsule TAKE ONE CAPSULE BY MOUTH TWICE DAILY FOR 10 DAYS -- FINISH ALL MEDICINE -- 08/19 completed Not Available Not Available Not Available erythromyci n 5 mg/gram (0.5 %) eye ointment APPLY A 0.5IN RIBBON TO THE EYE 2 TIMES DAILY 09/30 /2024 completed Not Available Not Available Not Available cyanocobala min (vit B-12) 1,000 mcg/mL injection solution INJECT 1 ML INTRAMUSC ULARLY ONCE a WEEK FOR 4 WEEKS AND THEN ONCE a MONTH FOR 6 MONTHS 10/24 completed Not Available Not Available Not Available valsartan 320 mg tablet TAKE ONE TABLET BY MOUTH EVERY DAY 08/19 completed Not Available Not Available Not Available BD Luer-Hi Syringe 3 mL 25 gauge x 1 USE DIRECTED 10/24 completed Not Available Not Available Not Available omeprazole 20 mg capsule,del ayed release TAKE ONE CAPSULE BY MOUTH EVERY DAY FOR stomach active Not Available Not Available No t Available Baby Aspirin 81 mg chewable tablet Chew 1 tablet every day by oral route. active Not Available Not Available No t Available furosemide 20 mg tablet TAKE 1 TABLET BY MOUTH DAILY NEEDED FOR SWELLING 10/24 completed Not Available Not Available Not Available cefuroxime axetil 500 mg tablet TAKE ONE TABLET BY MOUTH EVERY TWELVE HOURS FOR 10 DAYS -- FINISH ALL MEDICINE -- 10/24 completed Not Available Not Available Not Available lovastatin 20 mg tablet TAKE ONE TABLET BY MOUTH EVERY DAY AT BEDTIME FOR cholester ol active Not Available Not Available No t Available lisinopril 40 mg tablet TAKE ONE TABLET BY MOUTH EVERY DAY 10/24 completed Not Available Not Available Not Available ondansetron 4 mg disintegrat ing tablet DISSOLVE ONE TABLET BY MOUTH EVERY 6 HOURS NEEDED FOR NAUSEA AND VOMITING 10/24 completed Not Available Not Available Not Available cefdinir 300 mg capsule TAKE ONE CAPSULE BY MOUTH TWICE DAILY FOR 10 DAYS -- FINISH ALL MEDICINE -- active Not Available Not Available No t Available losartan 100 mg tablet TAKE ONE TABLET BY MOUTH EVERY DAY 08/19 completed Not Available Not Available Not Available naproxen 500 mg tablet TAKE ONE TABLET BY MOUTH TWICE DAILY active Not Available Not Available No t Available rosuvastati n 20 mg tablet TAKE ONE TABLET BY MOUTH EVERY DAY active Not Available Not Available No t Available rosuvastati n 40 mg tablet TAKE ONE TABLET BY MOUTH EVERY DAY active Not Available Not Available No t Available valsartan 320 mg-hydrochl orothiazide 12.5 mg tablet TAKE ONE TABLET BY MOUTH EVERY DAY active Not Available Not Available No t Available hydrochloro thiazide 12.5 mg tablet TAKE ONE TABLET BY MOUTH EVERY DAY 08/19 completed Not Available Not Available Not Available diclofenac 1 % topical gel APPLY 2 GRAMS TOPICALLY TO THE AFFECTED AREA FOUR TIMES DAILY 08/19 completed Not Available Not Available Not Available Centrum Silver Women active Not Available Not Available Not Available lidocaine 1.8 % topical patch APPLY 1 PATCH BY TOPICAL ROUTE ONCE DAILY (MAY WEAR UP TO 12HOURS.) 08/19 completed Not Available Not Available Not Available Vitals Date Recorded Body height Body mass index (BMI) Body weight Body temperature Oxygen saturation Oxygen saturation in Arterial blood by Pulse oximetry Heart rate Systolic blood pressure Diastolic blood pressure Provider Name and Address Organization Details Last Updated DateTime 5 162.56 cm 31.2 kg/m2 34247.8 1 g 97 [degF] 100 % 100 % 70 /min 120 mm[Hg] 68 mm[Hg] [facility] 5 10:02:53 Date Recorded Body height Body mass index (BMI) Body weight Body temperature Oxygen saturation Oxygen saturation in Arterial blood by Pulse oximetry Heart rate Systolic blood pressure Diastolic blood pressure Provider Name and Address Organization Details Last Updated DateTime 4 162.56 cm 30.2 kg/m2 15813.2 6 g 98.8 [degF] 98 % 98 % 68 /min 140 mm[Hg] 85 mm[Hg] [facility] 4 10:07:38 Social History None recorded. Functional Status Question Answer Note LastModified by Organizat ion Details LastModified Time Do you use any illicit or recreational drugs? No Information not available 08/19/2024 What is your level of alcohol consumption? None Information not available 08/19/2024 Mental Status None recorded. Family History Nothing Reported Notes:mother- hypertension, stroke, heart attack, kidney stone, nephrectomy Brother- thyroid, diabetes, heart attack, kidney disease sister- Thyroid, high cholesterol, hypertension Medical History Condition Response Other Y Gynecological HistoryNo gynecological history recorded. Obstetrics History GPAL:G 0 P 0 0 0 0 Past Encounters Encounter ID Performer Location Encounter Start Date Encounter Closed Date Diagnosis/Indication Diagnosis SNOMED-CT Code Diagnosis ICD10 Code Diagnosis Note [id number] MD AJITH Ricci [facility] [address] [place] [address] 10/24/2023 08:57:43 10/24/2023 09:52:51 Closed fracture of tibial tuberosity 344436081 S82.152D Exostosis of right calcaneus 1691086785 9590189 M89.8X7 Retrocalca roxana bursitis of right foot 6616140033 191442 M77.51 Patellar tendonitis 3778 5001 M76.52 [id number] Marietta Obrien NP, S [facility] [address] [facility] [address] [place] [address] 08/19/2024 09:20:18 08/19/2024 10:25:18 Recurrent urinary tract infection 635806465 N39.0 UA negativeSc hedule Renal UA and KUB, [facility] 500mg tidRTC in 8 weeks for f/u Microscopic hematuria 19 5715629 R31.29 Nocturia 452490742 R35.1 [id number] Marietta Obrien NP, S [facility] [address] [facility] [address] [place] [address] 10/22/2024 09:35:06 10/22/2024 10:12:23 Recurrent urinary tract infection 936716343 N39.0 UA negativeRe nal US and KUB results discussed with pt in clinicAt last visit discussed taking Vitamin C 500mg tid, states she has not started this.RTC in 4 months for f/u Nocturia 315828196 R35.1 Microscopic hematuria 19 0327055 R31.29 History of [id number] Marietta Obrien NP, S [facility]1 [address] [facility] [address] [place] [address] 02/27/2025 09:29:01 02/27/2025 10:09:56 History of urinary tract infection 3806106199 107 Z87.440 UA negativeRT C in 1 year for f/u Nocturia 584727249 R35.1 Health Concerns Section Related Observation LastModified by Organization Detai ls LastModified Time None Recorded Concern Status LastModified by Organization Details LastModified Time None Recorded Advance Directives Directive None Recorded Payers Insurance Date Sequence Insurance Name Policy Number Policy Joyce Covered Member ID Joyce Member ID Guarantor Name 02/27/2025 2 [facility] [id number] Michael Sinclair [id number] Estella Sinclair 02/21/2025 1 [place] Estella Sinclair [id number] Estella Sinclair Notes Date Note Type Note Provider Name and Address Organization Details Recorded Time 10/24/2023 text/html 2nd opinion left tibial tuberosity fracture tx at [facility] ER then orthpoedics afterDOI: 6.2.23 outside, tripped over a gutter landed on left knee on concreteSwelling and pain worse at night with proximal tibiaBurning and shooting pain with extension of kneeAlso here today for right Noman's deformity?Pt wore heels for 15 yearsSwelling isn't as bad today but at times very swollen and painfulIbuprofen and Tyl PRNUses lidocaine patches and nel wrap PRN for knee and posterior [id number] Jamal An MD [address] [place] [address],[address], [place], [address], [facility] - [place] & [place] 10/24/2023 11:28:31 08/19/2024 text/html 69 yowf presents to clinic for evaluation of UTIs. Location- LUT. Sxs- Typically asymptomatic. Severity- varies. Patient reports she has been experiencing history of urinary tract infections for the past 10 years. Patient reports typically she is asymptomatic. Patient reports a few weeks ago she was experiencing urinary urgency / frequency and gross hematuria and had a urinary tract infection. Patient reports she was treated with cephalexin. Reports she will get 1 UTI a year and this will be most noted on her annual urinalysis. Reports urinary stream is good. Nocturia 1-2. Bowels move regularly. She denies any dysuria or gross hematuria. Reports he has not had any imaging of kidneys. Reports history of microscopic hematuria 8 years ago, reports she had cystoscopy and workup with Dr. Perdue that was normal. Denies any family history of bladder or renal cancer. Reports UTIs are not related to sexual intercourse. Reports she experiences rare urge incontinence. Patient reports she has not a diabetic. Denies any history of hysterectomy. Marietta Obrien NP, S [address], [place], [address], [place] - [place] - [place] & [place] 08/19/2024 10:33:00 10/22/2024 text/html 10/22/2024 69 yowf RTC for 6 week f/u of UTIs. Renal US and KUB on 08/20/2024 were both normal. States since last visit on 08/19/2024, she has not experienced any UTIs or UTI like sxs. States urinary stream is good. Nocturia 1-2. Denies any dysuria or gross hematuria. At last visit discussed taking Vitamin C 500mg tid, states she has not started this. 08/19/2024 69 yowf presents to clinic for evaluation of UTIs. Location- LUT. Sxs- Typically asymptomatic. Severity- varies. Patient reports she has been experiencing history of urinary tract infections for the past 10 years. Patient reports typically she is asymptomatic. Patient reports a few weeks ago she was experiencing urinary urgency / frequency and gross hematuria and had a urinary tract infection. Patient reports she was treated with cephalexin. Reports she will get 1 UTI a year and this will be most noted on her annual urinalysis. Reports urinary stream is good. Nocturia 1-2. Bowels move regularly. She denies any dysuria or gross hematuria. Reports he has not had any imaging of kidneys. Reports history of microscopic hematuria 8 years ago, reports she had cystoscopy and workup with Dr. Perdue that was normal. Denies any family history of bladder or renal cancer. Reports UTIs are not related to sexual intercourse. Reports she experiences rare urge incontinence. Patient reports she has not a diabetic. Denies any history of hysterectomy. 08/20: Renal US normal. KUB normal Marietta Obrien NP, S [address], [place], [address], [place] - [facility] - [place] & [place] 10/22/2024 10:16:48 02/27/2025 text/html 02/27/2025 69 yowf RTC for 4 month f/u of Recurrent UTIs. States since last visit she has not experienced any UTIs. States over the weekend had some urinary frequency but that has dissipated. Urinary stream is good. Nocturia 1-2. Denies any dysuria or gross hematuria. 10/22/2024 69 yowf RTC for 6 week f/u of UTIs. Renal US and KUB on 08/20/2024 were both normal. States since last visit on 08/19/2024, she has not experienced any UTIs or UTI like sxs. States urinary stream is good. Nocturia 1-2. Denies any dysuria or gross hematuria. At last visit discussed taking Vitamin C 500mg tid, states she has not started this. 08/19/2024 69 yowf presents to clinic for evaluation of UTIs. Location- LUT. Sxs- Typically asymptomatic. Severity- varies. Patient reports she has been experiencing history of urinary tract infections for the past 10 years. Patient reports typically she is asymptomatic. Patient reports a few weeks ago she was experiencing urinary urgency / frequency and gross hematuria and had a urinary tract infection. Patient reports she was treated with cephalexin. Reports she will get 1 UTI a year and this will be most noted on her annual urinalysis. Reports urinary stream is good. Nocturia 1-2. Bowels move regularly. She denies any dysuria or gross hematuria. Reports he has not had any imaging of kidneys. Reports history of microscopic hematuria 8 years ago, reports she had cystoscopy and workup with Dr. Perdue that was normal. Denies any family history of bladder or renal cancer. Reports UTIs are not related to sexual intercourse. Reports she experiences rare urge incontinence. Patient reports she has not a diabetic. Denies any history of hysterectomy. 10/01 /2024: Renal US normal. KUB normal Marietta Obrien, SEE, S [address], [place], [address], [facility] - NT - [place] & [place] 02/27/2025 10:14:52 OBGyn Episode No OBEpisode recorded.
--- OUTSIDE RECORDS SUMMARY | 2025-04-16 12:27 | XMS_ITS | Continuity of Care Document ---
Author Organization [place] [address] Address [address] [facility] [address] [place] [address] Assessment No assessment recorded. Plan of Treatment Reminders Order Date Submit Date Provider Last Modified By Organization Details Last Modified Time Details Appointments OV EST 15 2025 09:30A M Marietta Obrien NP Not available Not available Not available Lab urinalysi s, dipstick 2024 025 [email or web address] [place] [address], [address] [facility] [address], [place], [address], 02/27/2025 10:14:17 Referral None recorded. Procedures None recorded. Surgeries None recorded. Imaging None recorded. Medication Orders None recorded. Patient TargetsNo targets recorded. Patient InstructionsNo instructions recorded. Reason for Referral None Reported. Results Created Date Observation Date Name Description Value Unit Range Abnormal Flag Note LastModifiedBy Organization Detail LastModifiedTime 02/28/2002/27/2025 urina lysis , dipst ick Leukocytes (reference range) negati ve Not Available [place] [address] [address] [facility] [address], [place], [address], 02/27/2025 10:13:47 02/28/20 25 02/27/2025 urina lysis , dipst ick Nitrite (reference range:) negati ve Not Available [place] [address] [address] [facility] [address], [place], [address], 02/27/2025 10:13:47 02/28/20 25 02/27/2025 urina lysis , dipst ick Urobilinogen (reference range) 0.2 Not Available [facility] [place] [address] [address] [facility] [address], [place], [address], 02/27/2025 10:13:47 02/28/20 25 02/27/2025 urina lysis , dipst ick Protein (reference range) negati ve Not Available [facility] [place] [address] [address] [facility] [address], [place], [address], 02/27/2025 10:13:47 02/28/20 25 02/27/2025 urina lysis , dipst ick pH (reference range 5-8.5) 6.0 Not Available Rafal [facility] [place] [address] [address] [facility] [address], [place], [address], 02/27/2025 10:13:47 02/28/20 25 02/27/2025 urina lysis , dipst ick Blood (reference range:) negati ve Not Available [place] [address] [address] [facility] [address], [place], [address], 02/27/2025 10:13:47 02/28/20 25 02/27/2025 urina lysis , dipst ick Specific [place] (reference range) 1.015 Not Available [place] [address] [address] [facility] [address], [place], [address], 02/27/2025 10:13:47 02/28/20 25 02/27/2025 urina lysis , dipst ick Ketone (reference range) negati ve Not Available [place] [address] [address] [facility] [address], [place], [address], 02/27/2025 10:13:47 02/28/20 25 02/27/2025 urina lysis , dipst ick Bilirubin (reference range) negati ve Not Available [place] [address] [address] [facility] [address], [place], [address], 02/27/2025 10:13:47 02/28/20 25 02/27/2025 urina lysis , dipst ick Glucose (reference range) negati ve Not Available [facility], [place], [address], 02/27/2025 10:13:47 02/28/20 25 02/27/2025 urina lysis , dipst ick Color (reference range: yellow-brown ) Yellow Not Available [facility], [place], [address], 02/27/2025 10:13:47 Result Notes None recorded. Problems Name Problem SNOMED Code Status Onset Date Resolution Date Notes Provider Name and Address Organization Details Recorded Time Retrocalc aneal bursitis of right foot 717742907466 9104 Active 2022 Jamal An MD [facility] [facility],[address], [place], [address], [place] - [facility] - [place] & [place] 3 11:27:32 Patellar tendoniti s 24222403 Active 2022 Jamal An MD [address] [place] [address],[address], [place], [address], [place] - [facility] - [place] 3 11:28:23 Malignant neoplasm of skin 596980316 Completed 202308/19/2024 Chaparrita Linares null, [place] - [facility] - [place] 4 10:17:19 Hyperchol esterolem ia 14964766 Active 2023 Chaparrita Weise null, [place] - [facility] - [place] 4 10:17:29 Hypertens lorrie disorder 35164119 Active 2023 Chaparrita Weise null, [place] - [facility] - [place] 4 10:17:38 Gastroeso phageal reflux disease 023691171 Active 2023 Chaparrita murrieta, LITTLE - [facility] - [place] & [place] 4 10:17:48 Tuberculo sis 24338754 Active 2023 Chaparrita murrieta, LITTLE Doming[place] [facility] - [facility] & [place] 4 10:18:11 Microscop ic hematuria 902245964 Active 2023 Chaparrita murrieta, LITTLE Dominguez [facility] - [place] & [place] 4 10:18:23 History of urinary tract infection 649074717220 7 Active 2023 Chaparrita murrieta, LITTLE Dominguez [facility] - [place] & [place] 4 10:18:35 Problem Notes None recorded. Procedures Surgical History Date Name Laterality Status Provider Name and Address Organization Details Recorded Time primary fusion of cervical spine completed Chaparrita Dominguez [facility] Alberto [place] 08/19/2024 10:24:03 Imaging Results None recorded. Procedure Notes None recorded. Medical Equipment None Reported. Allergies Allergen ID Allergen Name Allergen Category Reaction Reaction Severity Criticality Documentation Date Start Date Code Code System Note Provider Name and Address Organization Details Recorded Time 551730 Product containin g penicilli n (product) medicatio n hives moderate Not available 10/24/2023 03648 8001 SNOMED Breonna murrieta, LITTLE - [facility] - [place] & [place] 3 09:25:04 436116 adhesive environme nt,medica tion rash Not available Not available 10/24/2023 84251 UNK Breonna murrieta, LITTLE - [facility] - [place] & [place] 3 09:25:04 428103 Bactrim medicatio n Not available Not available Not available 08/19/2024 86649 9 RxNorm Chaparrita murrieta, LITTLE - [facility] - [place] & [place] 4 10:16:51 745288 Levaquin medicatio n Not available Not available Not available 08/19/2024 63414 2 RxNorm Chaparrita murrieta, LITTLE - [facility] - [place] & [place] 4 10:17:01 Medications Name Sig Start Date [...] RIBBON TO THE EYE 2 TIMES DAILY 08/19 completed Not Available Not [...] ONCE DAILY (MAY WEAR UP TO 12HOURS.) 12/05/ 2023 09/30 /2024 completed Not Available Not Available Not Available Vitals Date Recorded Body height Body mass index (BMI) Body weight Body temperature Oxygen saturation Oxygen saturation in Arterial blood by Pulse oximetry Heart rate Systolic blood pressure Diastolic blood pressure Provider Name and Address Organization Details Last Updated DateTime 162.56 cm 31.2 kg/m2 75259.8 1 g 97 [degF] 100 % 100 % 70 /min 120 mm[Hg] 68 mm[Hg] Chaparrita Linares [facility] - [place] 10:02:53 Social History None recorded. Functional Status Question [...] SNOMED-CT Code Diagnosis ICD10 Code Diagnosis Note [id number] Marietta Obrien NP, S [facility]-[address] [place] [address] 02/27/2025 09:29:01 02/27/2025 10:09:56 History of urinary tract infection 4524423543 107 Z87.440 UA negativeRT C in 1 year for f/u Nocturia 539110181 R35.1 Health Concerns Section Related Observation LastModified by Organization Detai ls LastModified Time None Recorded Concern Status LastModified by Organization Details LastModified Time None Recorded Payers Encounter Date Sequence Insurance Name Policy Number Policy Joyce Covered Member ID Joyce Member ID Guarantor Name 02/27/2025 2 [place] [id number] Michael Sinclair [id number] Estella Sinclair 02/27/2025 1 [place]ARE[place]ICARE[place] Estella Sinclair [id number] Estella Sinclair Notes Date Note Type Note Provider Name and Address Organization Details Recorded Time 02/27/2025 text/html 02/27/2025 69 yowf RTC for [...] a diabetic. Denies any history of hysterectomy. 08/20/2024: Renal US normal. KUB normal Marietta Obrien NP, S [address], [place], [address], [facility] - [place] - [place] 02/27/2025 10:14:52 OBGyn Episode No OBEpisode recorded.
[2025-04-16] MEDS: ALBUTEROL 0.083% 2.5 MG/3 ML NEB IH (13:30)
--- NOTE | 2025-04-17 05:40 | PC.NURSE ---
Addendum entered by Geena Roper, RT 04/17/25 05:54: Note entered post downtime. Original Note: PFT and 6 Minute walk test completed. Albuterol 0.083% given via HHN, per protocol, Pt tolerated tx well.
== END 2025-04-16 23:59 | disposition home or self-care (01) ==
LOC: RT 12:26
PROVIDERS: PCP Internal Medicine; Visit Provider Internal Medicine Pulmonary Disease
DX: J44.9 Chronic obstructive pulmonary disease, unspecified (principal)
CPT/HCPCS: 94060; 94618; 94726; 94729

== ENCOUNTER 2025-06-25 09:33 | Outpatient (CLI) | payer MEDICARE, BC, SELFPAY ==
--- OUTSIDE RECORDS SUMMARY | 2025-06-27 09:36 | XMS_ITS | Encounter Summary ---
Author Organization [facility] Address [address] [place] [address] Care Team Providers Care Bed And Breakfast Operator Name Role Phone Pedro Hi MD Primary Care Provider Harriet Barnes CNP Unavailable Unavailabl e Source Comments This information has been disclosed to you from confidential records protectfrom disclosure by state law. You shall make no further disclosure of thisinformation without the specific, written, and informed release of theindividual to whom it pertains, or as otherwise permitted by law. A generalauthorization for the release of medical or other information is not sufficientfor the purposes of the release of HIV test results or diagnoses. [id number] Health Encounter Details Date Type Department Care Team (Late st Contact Info) Description 10/23/2018 Orders Only [facility] Dermatology at [address] [place] [address] Harriet Serrato CNP Social History Tobacco Use Types Packs/Day Years Used Date Smoking Tobacco: Former Cigarettes Smokeless Tobacco: Never Alcohol Use Standard Drinks/Week Comments Yes 0 (1 standard drink = 0.6 oz pur e alcohol) 4-5 beers weekly Comments Unknown Sex and Gender Information Value Date Recorded Sex Assigned at Not on file Legal Sex Female 9:04 AM EDT Gender Identity Not on file Sexual Orientation Not on file documented as of this encounter Progress Notes * Harriet Serrato CNP - 10/23/2018 11:59 PM EST Call placed to patient and no answer and LMOM to call for results. * Wendie Wheeler RN - 10/23/2018 11:59 PM EST Mohs 12/17/18 documented in this encounter Plan of Treatment Not on file documented as of this encounter Procedures Procedure Name Priority Date/Time Associated Diagnosis Comments SKIN / NAIL BIOPSY 10/23/2018 2: 43 PM EST documented in this encounter Results * Skin / nail biopsy (10/23/2018 2:43 PM EST) 10/23/2018 2:43 PM EST 10/23/2018 2:43 PM EST Narrative DERM PATH LAB - 10/25/2018 11:58 AM EST Accession Number: [id number] Biopsy Site: [place] Biopsy Date: 10/23/2018 Impression: R/O BCC Gross Description: A specimen of skin was received [id number] MICRO EXAM: There are multiple islands of atypical basaloid cells with peripheral palisading and focal central necrosis. There is solar elastosis, proliferation of fibroblasts and a lymphocytic infiltrate in the adjacent stroma. DIAGNOSIS: Nodular basal cell carcinoma. ICD-10: C44.91 PATHOLOGIST: Electronically signed by: Rosy Machado MD Procedure Note Unknown, Attending Provider - 10/25/2018 Accession Number: [id number] Biopsy Site: [place] Biopsy Date: 10/23/2018 Impression: R/O BCC Gross Description: A specimen of skin was received [id number] MICRO EXAM: There are multiple islands of atypical basaloid cells with peripheral palisading and focal central necrosis. There is solar elastosis, proliferation of fibroblasts and a lymphocytic infiltrate in theadjacent stroma. DIAGNOSIS: Nodular basal cell carcinoma. ICD-10: C44.91 PATHOLOGIST: Electronically signed by: Rosy Machado MD us Harriet Serrato CNP DERM PROCEDURE ORDERABLES F inal Result DERM PATH LAB documented in this encounter Visit Diagnoses Not on filedocumented in this encounter Care Teams Bed And Breakfast Operator Relationship Specialty Start Date End Date Pedro Hi MD [address] [place] [address] PCP - General Emergency Medicine 10/23/18 Harriet Serrato CNP [address] [place] [address] Nurse Practitioner Nurse Practitioner 02/28/22 documented as of this encounter
--- OUTSIDE RECORDS SUMMARY | 2025-06-27 09:36 | XMS_ITS | Clinical Summary ---
Author Organization [facility] Address [facility] [place] [address] Care Team Providers Care Quality Assurance Representative Name Role Phone Pedro Hi MD Primary Care Provider Harriet Barnes [facility] Unavailable Unavailabl e Source Comments This information has been disclosed to you from confidential records protectedfrom disclosure by state law. You shall make no further disclosure of thisinformation without the specific, written, and informed release of theindividual to whom it pertains, or as otherwise permitted by law. A generalauthorization for the release of medical or other information is not sufficientfor the purposes of therelease of HIV test results or diagnoses. [id number] Allergies Active Allergy Reactions Criticality Noted Date Comments Levofloxacin Other (See Comments) Medium 08/11/2023 Other Reaction(s): muscle cramps, pain in Achilles tendon Penicillins 10/23/2018 Sulfamethoxazole Low 09/30/2024 Trimethoprim Low 09/30/2024 Medications omeprazole (PRILOSEC) 20 MG capsule TAKE ONE CAPSULE BY MOUTH EVERY DAY FOR stomach 02/06/2023 Active lisinopriL (PRINIVIL) 20 MG tablet Take 1 tablet (20 mg total) by mouth daily. 02/06/2023 Active lovastatin (MEVACOR) 20 MG tablet Take 1 tablet (20 mg total) by mouth daily. 02/06/2023 Active amLODIPine (NORVASC) 5 MG tablet Take 1 tablet (5 mg total) by mouth daily. Active Active Problems Problem Noted Date Diagnosed Date BCC (basal cell carcinoma), face 12/17/2018 Encounters Date Type Department Care Team Description 04/07/2025 9:45 AM EDT Office Visit [facility] D[facility]ology at [facility] [address] [facility] [address] [place] [address] Doris Back CNP SK (seborrheic keratosis) (Primary Dx); Lentigines; Hemangioma of skin; Screening for skin cancer; History of nonmelanoma skin cancer; Milium cyst 04/07/2025 Travel from Last 3 Months Family History Medical History Relation Comments Melanoma Neg Hx Social History Tobacco Use Types Packs/Day Years Used Date Smoking Tobacco: Former Cigarettes Smokeless Tobacco: Never Alcohol Use Standard Drinks/Week Comments Yes 0 (1 standard drink = 0.6 oz pur e alcohol) 4-5 beers weekly PHQ-2 Answer Date Recorded PHQ-2 Score 0 12/30/2019 Comments Unknown Sex and Gender Information Value Date Recorded Sex Assigned at Not on file Legal Sex Female 9:04 AM EDT Gender Identity Not on file Sexual Orientation Not on file Last Filed Vital Signs Vital Sign Reading Time Taken Comments Blood Pressure 138/90 12/17/2018 12:13 PM EST Pulse - - Temperature - - Respiratory Rate - - Oxygen Saturation - - Inhaled Oxygen Concentration - - Weight - - Height - - Body Mass Index - - Plan of Treatment Health Maintenance Due Date Last Done Comments Abnormal Colonoscopy Follow Up 1954 Alcohol Misuse Screening 1972 Immunization: DTaP/Tdap/Td ( 1 - Tdap) 1973 Mammogram (MyChart) 1994 Cologuard (FIT-DNA) 1999 Colonoscopy 1999 Colorectal Cancer Screening (MyChart) 1999 Stool Testing (gFOBT) 1999 Immunization: Zoster (1 of 2) 2004 Lung Cancer Screening 2004 Osteoporosis Screening (DXA Scan) 2004 Depression Screening 12/30/2020 12/30/2019 Immunization: Pneumococcal ( 3 of 3 - PCV20 or PCV21) 12/18/2024 12/18/2019, 12/12/2017 Immunization: COVID-19 ( season) 2025 09/06/2024, 09/28/2023, 09/14/2022, Additional history exists Immunization: Influenza (MyC alvarado) (#1) 2025 09/06/2024, 09/28/2023, 09/14/2022, Additional history exists Immunization: RSV (Adult) (1 - 1-dose 75+ series) 2029 Insurance BLUE ACCESS MEDICARE A AND B Care Teams Quality Assurance Representative Relationship Specialty Start Date End Date Pedro Hi MD [address] [place] [address] PCP - General Emergency Medicine 10/23/18 Harriet Serrato CNP [address] [place] [address] Nurse Practitioner Nurse Practitioner 02/28/22
--- OUTSIDE RECORDS SUMMARY | 2025-06-27 09:36 | XMS_ITS | Clinical Summary ---
Author Organization [facility] Address [address] [id number] Care Team Providers Care Closing Specialist Name Role Phone Wai Hi MD Primary Care Provider + [phone] Immunizations Immunization Administration Dates Next Due Influenza, seasonal, injectable 08/20/2013 Family History Medical History Relation Name Comments Stroke Mother Relation Name Status Comments Mother Social History Tobacco Use Types Packs/Day Years Used Date Smoking Tobacco: Never Alcohol Use Standard Drinks/Week Comments Yes 0 (1 standard drink = 0.6 oz pure alcohol) Alcoholic Drinks/day: Social alcohol use Comments Unknown Sex and Gender Information Value Date Recorded Sex Assigned at Not on file Legal Sex Female 6:28 PM EDT Gender Identity Not on file Sexual Orientation Not on file Last Filed Vital Signs Vital Sign Reading Time Taken Comments Blood Pressure - - Pulse - - Temperature - - Respiratory Rate - - Oxygen Saturation - - Inhaled Oxygen Concentration - - Weight 69.4 kg (153 lb) 01/22/2014 11:03 AM EST Height 160 cm (5' 3 ) 01/22/2014 11:03 AM EST Body Mass Index 27.1 01/22/2014 11:03 AM EST Plan of Treatment Upcoming Encounters Date Type Department Care Team (Late st Contact Info) Description 08/12/2025 10:30 AM EDT Ovarian Cancer Screening [facility] [address] [facility] [place] [address] Health Maintenance Due Date Last Done Comments [facility]-Bone Density Scan 1954 [facility]-Depression Screening 1954 [facility]-Hepatitis C Screening 1954 [facility]-Medicare Annual Wellness (AWV) 1954 [facility]-Infant/Child/Adol SDOH Screenings 1954 [facility]- SDOH Screenings 1972 [facility]-Adult SDOH Screenings 1972 [facility]-DTaP,Tdap,and Td Vaccines (1 - Tdap) 1973 CT Colonography 1999 Colonoscopy 1999 FIT-DNA 1999 FIT 1999 FOBT 1999 Sigmoidoscopy 1999 [facility]-Colorectal Cancer Screening 1999 [facility]-Breast Cancer Screening 2004 [facility]-Zoster Vaccines (1 of 2) 2004 [id number] Vaccine ( season) 2024 09/28/2023, 09/14/2022, 05/24/2022, Additional history exists [facility]-Pneumococcal Vaccine: 50+ Years (3 of 3 - PCV20 or PCV21) 12/18/2024 12/18/2019, 12/12/2017 [facility]-Influenza Vaccine (#1) 07/21/202509/28, 09/14/2022, 09/02/2020, Additional history exists [facility]-RSV Vaccine: 60+ Years or (1 - 1-dose 75+ series) 2029 HPV Vaccines Aged Out No longer eligi ble based on patient's age to complete this topic [facility]-HIB Vaccines Aged Out No longer e ligible based on patient's age to complete this topic [facility]-Hepatitis A Vaccines Aged Out No longer eligible based on patient's age to complete this topic [facility]-IPV Vaccines Aged Out No longer e ligible based on patient's age to complete this topic [facility]-Rotavirus Vaccines Aged Out No lo nger eligible based on patient's age to complete this topic Insurance MEDICARE Care Teams Closing Specialist Relationship Specialty Start Date End Date Wai Hi MD [address] [place] [address] PCP - General 04/02/21
--- OUTSIDE RECORDS SUMMARY | 2025-06-27 09:36 | XMS_ITS | Clinical Summary ---
Author Organization [facility] Address [address] [place] [address] Phone Care Team Providers Care Squeak Rattle And Leak Repairer Name Role Phone Unavailable Primary Care Provider Unavailabl e Allergies Active Allergy Reactions Criticality Noted Date Comments Levofloxacin Other (See Comments) Medium 08/11/2023 Penicillins Hives,Other (See Comments) Low 10/23/20 18 Medications aspirin 81 mg Oral Capsule Take 81 mg by mouth daily. 07/17/2023 Active lovastatin (MEVACOR) 20 mg Oral Tablet Take 1 Tablet by mouth nightly. 02/06/2023 Active valsartan-hydroc hlorothiazide (DIOVAN-HCT) 320-12.5 mg Oral Tablet Take 1 Tablet by mouth daily. Active omeprazole (PRILOSEC) 20 mg Oral Capsule, Delayed Release(E.C.) Take 20 mg by mouth daily. Active multivit-min/iro n/FA/vit K/lut (CENTRUM SILVER WOMEN ORAL) Take 1 Tablet by mouth daily. 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 Thyroid nodule 04/17/2024 Surgical History Surgery Date Site/Laterality Comments CERVICAL FUSION Medical History Medical History Date Comments Anxiety disorder High blood pressure High cholesterol Social History Tobacco Use Types Packs/Day Years Used Date Smoking Tobacco: Never Smokeless Tobacco: Never Tobacco Cessation:Counseling Given: Not Answered Comments Unknown Sex and Gender Information Value Date Recorded Sex Assigned at Not on file Legal Sex Female 12:53 PM EST Gender Identity Not on file Sexual Orientation Not on file Obstetrics History Last Filed Vital Signs Vital Sign Reading Time Taken Comments Blood Pressure 136/78 04/17/2024 9:32 AM EDT Pulse 80 04/17/2024 9:32 AM EDT Temperature - - Respiratory Rate 16 04/17/2024 9:32 AM EDT Oxygen Saturation - - Inhaled Oxygen Concentration - - Weight 81.4 kg (179 lb 6.4 oz) 04/17/2024 9:32 A M EDT Height 162.6 cm (5' 4 ) 04/17/2024 9:32 AM EDT Body Mass Index 30.79 04/17/2024 9:32 AM EDT Plan of Treatment Health Maintenance Due Date Last Done Comments Wellness Exam Medicare 1957 Hepatitis C Screening 1972 DTaP/TDaP/Td (1 - Tdap) 1973 Breast Cancer Screening 1994 Cologuard 1999 Colon Cancer Screening 1999 Colonoscopy 1999 FIT 1999 Sigmoidoscopy 1999 Virtual Colonography 1999 Zoster (1 of 2) 2004 Bone Density Screening 2019 COVID-19 Vaccine ( season) 2024 09/28/2023, 09/14/2022, 05/24/2022, Additional history exists Pneumococcal Vaccine 50+ (3 of 3 - PCV20 or PCV21) 12/18/2024 12/18/2019, 12/12/2017 Influenza Vaccine (#1) 2025 3, 09/14/2022, 09/02/2020, Additional history exists Hepatitis B Vaccine Aged Out No longe r eligible based on patient's age to complete this topic Meningococcal B Vaccine Aged Out No l onger eligible based on patient's age to complete this topic Insurance MEDICARE [place] PART A AND B ANTHE[place]
== END 2025-06-25 23:59 | disposition home or self-care (01) ==
LOC: LAB.DROPOF 06-27 09:34
PROVIDERS: PCP Nurse Practitioner Family; Visit Provider Nurse Practitioner Family
DX: R39.9 Unspecified symptoms and signs involving the genitourinary system (principal)
CPT/HCPCS: 87086

== ENCOUNTER 2025-07-15 07:48 | Outpatient (CLI) | payer MEDICARE, BC, SELFPAY ==
--- OUTSIDE RECORDS SUMMARY | 2025-07-15 07:50 | XMS_ITS | Clinical Summary ---
Author Organization [facility] Address [address] [id number] Care Team Providers Care Advertising Executive Name Role Phone Wai Hi MD Primary Care Provider + [phone] Immunizations Immunization Administration Dates Next Due Influenza, [...] 08/12/2025 10:30 AM EDT Ovarian Cancer Screening [facility] [address] [facility] [place] [address] Health Maintenance Due Date Last Done Comments [facility]-Bone Density Scan 1954 [facility]-Depression Screening 1954 [facility]-Hepatitis C Screening 1954 [facility]-Medicare Annual Wellness (AWV) 1954 [facility]-/Child/Adol SDOH Screenings 1954 [facility]- SDOH Screenings 1972 [facility]-Adult SDOH Screenings 1972 [facility]-DTaP,Tdap,and Td Vaccines (1 - Tdap) 1973 CT Colonography 1999 Colonoscopy 1999 FIT-DNA 1999 FIT 1999 FOBT 1999 Sigmoidoscopy 1999 [facility]-Colorectal Cancer Screening 1999 [facility]-Breast Cancer Screening 2004 [facility]-Zoster Vaccines (1 of 2) 2004 [id number] Vaccine ( season) 2024 09/28/2023, 09/14/2022, 05/24/2022, [...] complete this topic Insurance MEDICARE Care Teams Advertising Executive Relationship Specialty Start Date End Date Wai Hi MD [address] [place] [address] PCP - General 04/02/21
--- OUTSIDE RECORDS SUMMARY | 2025-07-15 07:51 | XMS_ITS | Encounter Summary ---
Author Organization [facility] Address [address] [place] [address] Care Team Providers Care Universal Branch Consultant Name Role Phone Pedro Hi MD Primary [...] release of HIV test results or diagnoses. [id number] Health Encounter Details Date Type Department Care Team (Late st Contact Info) Description 10/23/2018 Orders Only [facility] Dermatology at [address] [place] [address] Harriet Serrato CNP Social History Tobacco Use [...] as of this encounter Progress Notes * Harrite Serrato CNP - 10/23/2018 11:59 PM EST [...] - 10/25/2018 11:58 AM EST Accession Number: [id number] Biopsy Site: [facility] Biopsy Date: 10/23/2018 Impression: R/O BCC Gross Description: A specimen of skin was received [id number] MICRO EXAM: There are multiple islands of atypical basaloid cells with peripheral palisading and focal central necrosis. There is solar elastosis, proliferation of fibroblasts and a lymphocytic infiltrate in the adjacent stroma. DIAGNOSIS: Nodular basal cell carcinoma. ICD-10: C44.91 PATHOLOGIST: Electronically signed by: Rsoy Machado MD Procedure Note Unknown, Attending Provider - 10/25/2018 Accession Number: [id number] Biopsy Site: [facility] Biopsy Date: 10/23/2018 Impression: R/O BCC Gross Description: A specimen of skin was received [id number] MICRO EXAM: There are multiple islands of [...] on filedocumented in this encounter Care Teams Universal Branch Consultant Relationship Specialty Start Date End Date Pedro Hi MD [address] [place] [address] PCP - General Emergency Medicine 10/23/18 Harriet Serrato CNP [address] [place] [address] Nurse Practitioner Nurse Practitioner 02/28/22 documented as of this encounter
--- OUTSIDE RECORDS SUMMARY | 2025-07-15 07:51 | XMS_ITS | Clinical Summary ---
Author Organization [facility] Address [facility] [place] [address] Care Team Providers Care Manual Winder Name Role Phone Pedro Hi MD Primary Care Provider Harriet Barnes [facility] Unavailable Unavailabl e Source Comments This [...] therelease of HIV test results or diagnoses. [id number] Allergies Active Allergy Reactions Criticality Noted [...] Date BCC (basal cell carcinoma), face 12/17/2018 Family History Medical History Relation Comments Melanoma [...] Insurance BLUE ACCESS MEDICARE A AND B Member Subscriber Plan / Payer (Ef fective 2019-Present) Name:Estella Khan Relation to Subscriber:Self Name:Estella Khan Payer ID:[id number] Group ID:Not on file Type:Medicare Address: [facility] [id number] [place] [id number] Care Teams Manual Winder Relationship Specialty Start Date End Date Pedro Hi MD [address] [place] [id number] PCP - General Emergency Medicine 10/23/18 Harriet Serrato CNP [address] [place] [address] Nurse Practitioner Nurse Practitioner 02/28/22
--- NOTE | 2025-07-15 08:00 | US_ITS ---
FINAL REPORT TECHNIQUE: Sonographic images of the thyroid gland were obtained in the longitudinal and transverse planes. CLINICAL HISTORY: Thyroid nodules COMPARISON: 11/17/2023 FINDINGS: The right lobe measures 1.5 x 4.6 x 1.5 cm. There are several subcentimeter hypoechoic nodules which are stable. The left lobe measures 1.3 x 4.0 x 1.4 cm. The left lobe is mildly heterogeneous. The previously seen hypoechoic nodules in the upper pole are not visualized on today's exam. The TR 4 nodule described previously is not well-appreciated today. The lobular contour to the left lobe may account for the apparent nodule seen previously. The isthmus measures 4 mm. This is normal. IMPRESSION: Stable subcentimeter right thyroid nodules. Previously seen left thyroid nodule is not well-visualized as a discrete nodule on today's exam. The lobular contour to the left lobe may account for the apparent nodule seen previously. Reviewed, Interpreted and Dictated by Shweta Awan MD Transcribed by Lelia Steen Authenticated and [facility]
[2025-07-15 09:00] LABS: Hematocrit 39.0 % (37.0-47.0); Hemoglobin 12.9 g/dL (12.2-16.2); Immature Granulocytes % 0.2 %; Mean Corpuscular HGB Conc 33.1 g/dL (31.8-35.4); Mean Corpuscular Hemoglobin 29.4 pg (27.0-31.2); Mean Corpuscular Volume 88.8 fl (81-99); Nucleated Red Blood Cells % 0 %; Platelet Count 238 K/mm3 (142-424); Red Blood Count 4.39 M/mm3 (4.20-5.40); Red Cell Distribution Width-SD 43.0 fL; White Blood Count 4.6 K/mm3 (4.8-10.8)
[2025-07-15 09:25] LABS: Albumin Level 4.7 g/dl (3.5-5.0); Chloride 101 mmol/L (98-107); Potassium 5.0 mmoL/L (3.5-5.1); Sodium 136 mmol/L (136-145)
[2025-07-15 09:27] LABS: Alanine Aminotransferase 17 U/L (12-78); Anion Gap 14.0 mEq/L (5-15); Aspartate Amino Transferase 25 U/L (14-36); Blood Urea Nitrogen 12 mg/dl (7-17); Carbon Dioxide 26 mmol/L (22.0-30.0); Creatinine,Serum 0.80 mg/dl (0.52-1.04); Estimated Glomerular Filt Rate 71 ml/min (>60); GFR (African American) 86 ML/MIN (>60)
[2025-07-15 09:28] LABS: Albumin/Globulin Ratio 2.0 (1.1-1.8); Alkaline Phosphatase 85 U/L (38-126); Bilirubin,Total 0.5 mg/dl (0.2-1.3); Calcium 10.1 mg/dl (8.4-10.2); Cholesterol 154 mg/dl (140-200); Globulin 2.4 g/dL (1.3-3.2); Glucose 106 mg/dl (74-100); HDL Cholesterol 79 mg/dl (40-60); Total Protein,Serum 7.1 g/dl (6.3-8.2); Triglycerides 82 mg/dl (30-150)
[2025-07-15 09:48] LABS: Triiodothryronine (T3) Uptake 33 % (23.5-40.5)
[2025-07-15 09:49] LABS: Free Thyroxine Index 2.5 ug/dL (5.93-13.13); T4 (Thyroxine) 7.6 ug/dl (5.53-11.0)
[2025-07-15 10:03] LABS: Thyroid Stimulating Hormone 2.35 uIU/mL (0.465-4.68)
== END 2025-07-15 23:59 | disposition home or self-care (01) ==
PROVIDERS: PCP Nurse Practitioner Family; Visit Provider Nurse Practitioner Family
DX: E04.2 Nontoxic multinodular goiter (principal); E06.3 Autoimmune thyroiditis; I10 Essential (primary) hypertension
CPT/HCPCS: 36415; 76536; 80053; 80061; 84436; 84443; 84479; 85025